=== PATIENT | male | born 1960 | race Caucasian/White ===

== ENCOUNTER → 2018-04-08 09:10 | Outpatient (CLI) | payer OTHER, SELFPAY ==
[2018-04-08 09:43] LABS: Hematocrit 48.4 % (40-54); Hemoglobin 16.7 g/dl (13.0-16.5); Mean Corp Hgb Conc 34.5 g/gl (32-36); Mean Corpuscular Hgb 33.9 pg (27.0-32.0); Mean Corpuscular Volume 98.4 fL (80-94); Mean Platelet Vol. 10.4 fl (6.2-12.0); Platelet Count 129 K/mm3 (150-450); RBC Distribution Width CV 12.5 % (11.6-14.6); Red Blood Count 4.92 M/mm3 (4.6-6.2); Scan Indicated on CBC? Y/N NO; White Blood Count 4.4 K/mm3 (4.4-11.0)
[2018-04-08 10:00] LABS: Hemoglobin A1c 4.8 % (4.2-6.3)
[2018-04-08 10:13] LABS: ALB/GLOB Ratio 1.1 RATIO (0.9-2.4); AST(SGOT) 38 U/L (15-37); Alanine Aminotransfer ALT/SGPT 76 U/L (16-61); Albumin, Serum 3.9 g/dL (3.2-5.0); Alkaline Phosphatase 67 U/L (45-117); Anion Gap 11 (5-15); BUN 14 mg/dL (7-18); Calcium,Total 8.9 mg/dL (8.5-10.1); Chloride 107 mmol/L (98-107); Cholesterol 179 mg/dL (200); Creatinine, Serum 1.17 mg/dL (0.70-1.30); EST Glomerular Filtration Rate 68 mL/min (>60); Est Glom Filt Rate - Afr Amer 83 mL/min (>60); Globulin 3.5 g/dL (2.2-4.2); Glucose 97 mg/dL (74-106); High Density Lipoprotein 47 mg/dL; PSA,Total - Annual Screen 0.43 ng/mL (0.00-4.00); Potassium 4.9 mmol/L (3.5-5.1); Protein, Total 7.4 g/dL (6.4-8.2); Sodium Level 144 mmol/L (136-145); Triglycerides 92 mg/dL; Very Low Density Lipoprotein 18 mg/dL (5-40)
== END ==
PROVIDERS: Visit Provider Student in an Organized Health Care Education/Training Program
DX: Z00.00 Encounter for general adult medical examination without abnormal findings (principal); Z12.5 Encounter for screening for malignant neoplasm of prostate
CPT/HCPCS: 36415; 80053; 80061; 83036; 84153; 85027; G0103

== ENCOUNTER → 2019-03-20 09:00 | Outpatient (CLI) | payer OTHER, SELFPAY ==
--- NOTE | 2019-03-20 09:00 | LES_PTH ---
PATIENT: NELSON MASSEY LOC: [facility] U#:[id number] AGE/SX: 65/M ROOM: RE03/20/[address]: Dr. Johann Franco MD : 1960 BED: DIS: SPEC #: [id number] RECD: 03/20/19 15:22 STATUS: MAG GIANNA #: [id number] ERWIN: 03/20/19 09:[address]: Johann Franco DEPT: SURGICAL PATHOLOGY RECD BY: Kali Waller Tissues: A - Skin of forearm, NOS B - Skin of forearm, NOS C - Skin of ankle and foot Procedures: Surgery Specimen Level IV HEADER OPERATION: Shave biopsy of left forearm skin lesion x2 and one left ankle skin lesion PRE-OP DIAGNOSIS: Skin lesions x2 left arm and one left ankle TISSUE SUBMITTED: A. Left forearm medial, B. Left forearm lateral, C. Left ankle skin lesion MICROSCOPIC DIAGNOSIS A. Left forearm medial, shave biopsy: Seborrheic keratosis with focal actinic changes. Negative for malignancy. B. Left forearm lateral, shave biopsy: Inflamed actinic keratosis with verrucous features and focal features of seborrheic keratosis. Negative for malignancy. C. Left ankle lesion, shave biopsy: Actinic keratosis with verrucous features. Negative for malignancy. SJ:rg 03/24/19 COMMENT Clinical correlation and appropriate follow up are necessary. Case has been reviewed in consultation with Dr. Lorenz who concurs with the above diagnosis. IDC:AM MICROSCOPIC DESCRIPTION Slides are reviewed. GROSS DESCRIPTION A - Received in fixative is one container labeled with the patient's name and designated left forearm medial. The specimen consists of a piece of magallanes-brown skin measuring 0.5 x 0.4 x 0.1 cm. The specimen is inked and submitted entirely in one cassette. It will be bisected at the time of embedding. B - Received in fixative is one container labeled with the patient's name and designated left forearm lateral. The specimen consists of a piece of magallanes-white skin measuring 0.6 x 0.6 x 0.2 cm. The specimen is inked and submitted entirely in one cassette. It will be bisected at the time of embedding. C - Received in fixative is one container labeled with the patient's name and designated left ankle. The specimen consists of a piece of magallanes-white skin measuring 0.6 x 0.6 x 0.1 cm. The specimen is inked and submitted entirely in one cassette. It will be sectioned at the time of embedding. / RINA:therese 03/21/19 TC:3 CPT: 19977 x3
== END ==
PROVIDERS: Referring Provider Surgery; Visit Provider Surgery
DX: L98.9 Disorder of the skin and subcutaneous tissue, unspecified (principal)
CPT/HCPCS: 88305

== ENCOUNTER 2019-04-01 08:25 | Day surgery (SDC) | payer OTHER, SELFPAY ==
[2019-04-01] VITALS (8 sets, daily range): BP systolic 102–134; BP diastolic 69–82; PULSE 62–73; RESP 16; TEMP 36.4–37.2; O2SAT 95–100; BMI 34.3
--- NOTE | 2019-04-01 | COLBX_PTH ---
PATIENT: NELSON MASSEY LOC: EN U#:[id number] AGE/SX: 59/M ROOM: RE04/01/[address]: Dr. Johann Franco MD : 1960 BED: DIS: 04/01/2019 SPEC #: [id number] RECD: 04/01/19 14:04 STATUS: MAG GIANNA #: [id number] ERWIN: 04/01/19 00:[address]: Johann Franco DEPT: SURGICAL PATHOLOGY RECD BY: Jamison Altman ENTERED: 04/01/19 14:05 SP TYPE: COLON BX OTHR DR: Dr. Lavelle Sesay DO Tissues: A - Cecum, NOS B - Ileum, NOS C - COLON BIOPSY D - Transverse colon E - SPLENIC FLEXURE F - Descending colon Procedures: Surgery Specimen Level IV HEADER OPERATION: Colonoscopy (MOD) PRE-OP DIAGNOSIS: History of colon polyps TISSUE SUBMITTED: A - Flat polypoid cecal biopsy, B - Ileocecal valve polyp biopsy, C - Hepatic flexure polyp biopsy, D - Mid transverse polyp biopsy, E - Splenic flexure polyp biopsy, F - Descending colon polyp biopsy MICROSCOPIC DIAGNOSIS A. Cecal polyp, biopsy: Fragments of hyperplastic polyp. B. Ileocecal valve polyp, biopsy: Fragments of tubular adenoma. C. Colonic polyp at hepatic flexure, biopsy: Fragments of tubular adenoma. D. Mid transverse colon polyp, biopsy. Tubular adenoma. E. Colonic polyp at splenic flexure, biopsy: Colonic mucosa with focal adenomatous change. F. Descending colon polyp, biopsy: Fragments of tubular adenoma. AM:therese 04/02/19 MICROSCOPIC DESCRIPTION Slides are reviewed. GROSS DESCRIPTION A - Received in fixative is one container labeled with the patient's name and designated flat polypoid cecal biopsy. The specimen consists of multiple irregular fragments of light magallanes soft tissue that in aggregate measure 1 x 0.3 x 0.1 cm. The specimen is totally submitted in one cassette. B - Received in fixative is one container labeled with the patient's name and designated ileocecal valve polyp biopsy. The specimen consists of multiple irregular fragments of light magallanes soft tissue that in aggregate measure 2 x 0.6 x 0.1 cm. The specimen is totally submitted in one cassette. C - Received in fixative is one container labeled with the patient's name and designated hepatic flexure polyp biopsy. The specimen consists of two irregular fragments of light magallanes soft tissue that in aggregate measure 0.6 x 0.3 x 0.1 cm. The specimen is totally submitted in one cassette. D - Received in fixative is one container labeled with the patient's name and designated mid transverse polyp biopsy. The specimen consists of multiple irregular fragments of light magallanes soft tissue that in aggregate measure 0.5 x 0.5 x 0.1 cm. The specimen is totally submitted in one cassette. E - Received in fixative is one container labeled with the patient's name and designated splenic flexure polyp. The specimen consists of two irregular fragments of light magallanes soft tissue that in aggregate measure 0.8 x 0.3 x 0.1 cm. The specimen is totally submitted in one cassette. F - Received in fixative is one container labeled with the patient's name and designated descending colon polyp. The specimen consists of multiple irregular fragments of light magallanes soft tissue that in aggregate measure 1.2 x 0.4 x 0.1 cm. The specimen is totally submitted in one cassette. / SJ:rg 04/01/19 TC:5 CPT: 79744 x6
--- NOTE | 2019-04-01 05:47 | PCM.HP.STD ---
Problem List (1) Personal history of colonic polyps Status: Acute History of Present Illness Date of Admission: 04/01/19 The patient is a 59 year old M who presents for surveillance colonoscopy. He has a personal history of multiple colon polyps identified on his previous colonoscopy. Multiple adenomas. He has had no personal or family history of colon cancer. He currently remains symptom-free. He denies bright red blood per rectum or melena. No abdominal pain. He has had no change in body habitus. Past Medical History Medical History: Medical History (Last Updated 03/20/19 @ 08:06 by Salud Jimenez) Skin lesions (Acute) L98.9 Back problem M53.9 Constipation K59.00 Allergies No Known Allergies Allergy (Unverified 03/28/19 11:41) Home Medications: Ambulatory Orders Medication Instructions Recorded peg 3350-electrolytes 236 4,000 ml PO ONCE #4000 ml 03/10/19 gram-22.74 gram-6.74 gram-5.86 gram solution Aspirin [Mitch Advanced] 500 mg PO PRN PRN 03/28/19 Surgical History: Surgical History (Last Updated 03/20/19 @ 08:04 by Salud Jimenez) H/O colonoscopy Z98.890 Smoking Status: Former smoker Review of Systems Constitutional: Denies: Anorexia HEENT: Denies: Difficulty Swallowing Cardiovascular: Denies: Chest Pain Respiratory: Denies: Cough Gastrointestinal: Denies: Abdominal Pain, Melena Endocrine: Denies: Change in Body Habitus VTE Information - Inpt Only VTE Present on Admission: No - Physical Exam General: Alert, Oriented x3, Cooperative, No apparent distress Oral: Moist Mucosa Neck: Supple Lungs: Clear to auscultation, Normal air movement Cardiovascular: Regular rate, Regular Rhythm Abdomen: Bowel Sounds Present, Soft, Non Tender Extremities: No clubbing Psych/Mental Status: Normal Affect Assessment/Plan All Active Problems (Last Updated 03/20/19 @ 08:06 by Salud Jmienez) Personal history of colonic polyps (Acute) Skin lesions (Acute) I recommended the patient a surveillance colonoscopy. He is aware of the technique, benefits, risks, alternatives. He has had an opportunity to ask and have questions answered. We will proceed as noted. He presents via our open access program today. Previous colonoscopy was 2 years prior. Johann Franco M.D., F.A.C.S.
--- NOTE | 2019-04-01 10:17 | OP.ENDO_ITS ---
Patient Name: Brenden Owens Procedure Date: 04/01/2019 9:22 AM Date of : 1960 Age: 59 Procedure: Colonoscopy Indications: High risk colon cancer surveillance: Personal history of colonic polyps Providers: Johann Franco MD Referring MD: Johann Franco MD Medicines: Midazolam 6.5 mg IV, Meperidine 150 mg IV Patient Profile: Last Colonoscopy: 2016. Complications: No immediate complications. Procedure: Pre-Anesthesia Assessment: - Prior to the procedure, a History and Physical was performed, and patient medications and allergies were reviewed. The patient's tolerance of previous anesthesia was also reviewed. The risks and benefits of the procedure and the sedation options and risks were discussed with the patient. All questions were answered, and informed consent was obtained. Prior Anticoagulants: The patient has taken no previous anticoagulant or antiplatelet agents. ASA Grade Assessment: II - A patient with mild systemic disease. After reviewing the risks and benefits, the patient was deemed in satisfactory condition to undergo the procedure. After I obtained informed consent, the scope was passed under direct vision. Throughout the procedure, the patient's blood pressure, pulse, and oxygen saturations were monitored continuously. The pediatric colonoscope was introduced through the anus and advanced to the cecum, identified by appendiceal orifice and ileocecal valve. The colonoscopy was performed without difficulty. The patient tolerated the procedure well. The quality of the bowel preparation was fair. The ileocecal valve was photographed. Moderate Sedation: Moderate (conscious) sedation was personally administered by the endoscopist. The following parameters were monitored: oxygen saturation, heart rate, blood pressure, and response to care. Total physician intraservice time was 20 minutes. Scope In: 9:35:49 AM Scope Withdrawal Time 0 hours 26 minutes 38 seconds Scope Out: 10:07:41 AM Total Procedure Duration Time 0 hours 31 minutes 52 seconds Findings: Hemorrhoids were found on perianal exam. slightly enlarged. No mass Many diverticula were found in the sigmoid colon and descending colon. A 5 mm polyp was found in the cecum. The polyp was flat. The polyp was removed with a cold biopsy forceps. Resection and retrieval were complete. A 10 mm polyp was found in the ileocecal valve. The polyp was sessile. The polyp was removed with a cold snare. Resection and retrieval were complete. A 4 mm polyp was found in the hepatic flexure. The polyp was sessile. The polyp was removed with a cold biopsy forceps. Resection and retrieval were complete. A 4 mm polyp was found in the mid transverse colon. The polyp was sessile. The polyp was removed with a cold biopsy forceps. Resection and retrieval were complete. A 5 mm polyp was found in the splenic flexure. The polyp was sessile. The polyp was removed with a cold biopsy forceps. Resection and retrieval were complete. A 5 mm polyp was found in the mid descending colon. The polyp was sessile. The polyp was removed with a cold biopsy forceps. Resection and retrieval were complete. Impression: - Preparation of the colon was fair. - Hemorrhoids found on perianal exam. - Diverticulosis in the sigmoid colon and in the descending colon. - One 5 mm polyp in the cecum, removed with a cold biopsy forceps. Resected and retrieved. - One 10 mm polyp at the ileocecal valve, removed with a cold snare. Resected and retrieved. - One 4 mm polyp at the hepatic flexure, removed with a cold biopsy forceps. Resected and retrieved. - One 4 mm polyp in the mid transverse colon, removed with a cold biopsy forceps. Resected and retrieved. - One 5 mm polyp at the splenic flexure, removed with a cold biopsy forceps. Resected and retrieved. - One 5 mm polyp in the mid descending colon, removed with a cold biopsy forceps. Resected and retrieved. Recommendation: - Discharge patient to home. - Resume previous diet. - Continue present medications. - Repeat colonoscopy in 2 years for surveillance based on pathology results. - Telephone my office for pathology results in 1 week. Procedure Code(s): --- Professional --- 28704, Colonoscopy, flexible; with removal of tumor(s), polyp(s), or other lesion(s) by snare technique 46393, 59, Colonoscopy, flexible; with biopsy, single or multiple 56687, 59, Moderate sedation services provided by the same physician or other qualified health memory care director performing the diagnostic or therapeutic service that the sedation supports, requiring the presence of an independent trained observer to assist in the monitoring of the patient's level of consciousness and physiological status; initial 15 minutes of intraservice time, patient age 5 years or older Diagnosis Code(s): --- Professional --- Z86.010, Personal history of colonic polyps K64.9, Unspecified hemorrhoids D12.0, Benign neoplasm of cecum D12.3, Benign neoplasm of transverse colon (hepatic flexure or splenic flexure) D12.4, Benign neoplasm of descending colon K57.30, Diverticulosis of large intestine without perforation or abscess without bleeding CPT copyright 2017 [employer]. All rights reserved. The codes documented in this report are preliminary and upon director of architecture review may be revised to meet current compliance requirements. Johann Franco MD 04/01/2019 10:16:30 AM This report has been signed electronically. Number of Addenda: 0 Note Initiated On: 04/01/2019 9:22 AM
== END 2019-04-01 10:42 | disposition home or self-care (01) ==
LOC: EN 08:27 → AC 08:28
PROVIDERS: Family Provider Student in an Organized Health Care Education/Training Program; PCP Student in an Organized Health Care Education/Training Program; Referring Provider Surgery; Visit Provider Surgery
PROC: 0DJD8ZZ Inspection of Lower Intestinal Tract, Via Natural or Artificial Opening Endoscopic (ICD-10-PCS; CPT 45378; principal; 2019-04-01 09:25)
DX: Z12.11 Encounter for screening for malignant neoplasm of colon (principal); D12.4 Benign neoplasm of descending colon; D12.3 Benign neoplasm of transverse colon; D12.0 Benign neoplasm of cecum; K57.30 Diverticulosis of large intestine without perforation or abscess without bleeding; K64.9 Unspecified hemorrhoids; K59.00 Constipation, unspecified; Z79.82 Long term (current) use of aspirin; Z87.891 Personal history of nicotine dependence; Z86.010 Personal history of colon polyps
CPT/HCPCS: 45380; 45385; 88305; 99152; 99153; J7120

== ENCOUNTER → 2020-01-26 14:06 | Outpatient (CLI) | payer OTHER, SELFPAY ==
[2019-04-01 08:45] VITALS: BMI 34.3
[2020-01-26 15:03] LABS: Absolute Lymphocyte Count 1.53 X10^3/uL (0.83-4.51); Absolute Neutrophil Count 4.1 X10^3/uL (2.0-7.7); Basophil# 0.04 X10^3/uL; Basophil% 0.6 % (0-1); Eosinophil# 0.11 X10^3/uL; Eosinophils% 1.7 % (0-5); Hematocrit 45.7 % (40-54); Hemoglobin 15.8 g/dL (13.0-16.5); Lymphocyte # 1.53 X10^3/ul (4.0); Lymphocyte % 24.2 % (19-41); Mean Corp Hgb Conc 34.6 g/dL (32-36); Mean Corpuscular Volume 92.7 fL (80-94); Mean Platelet Vol. 11.4 fl (6.2-12.0); Monocyte# 0.53 X10^3/uL; Monocyte% 8.4 % (0-10); NRBC Flagged by Analyzer 0 % (0-5); Neutrophil % 64.9 % (47-70); Platelet Count 166 K/mm3 (150-450); RBC Distribution Width CV 12.3 % (11.6-14.6); RBC Distribution Width SD 41.6 fl (35.1-43.9); Red Blood Count 4.93 M/mm3 (4.6-6.2); White Blood Count 6.3 K/mm3 (4.4-11.0)
[2020-01-26 15:18] LABS: Hemoglobin A1c 4.9 % (3.8-5.6)
[2020-01-26 15:19] LABS: ALB/GLOB Ratio 1.2 RATIO (0.9-2.4); AST(SGOT) 18 U/L (15-37); Alanine Aminotransfer ALT/SGPT 33 U/L (16-61); Albumin, Serum 3.7 g/dL (3.2-5.0); Alkaline Phosphatase 73 U/L (45-117); Anion Gap 7 (5-15); BUN 14 mg/dL (7-18); BUN/Creat Ratio 13.2 RATIO (10-20); Calcium,Total 8.8 mg/dL (8.5-10.1); Chloride 108 mmol/L (98-107); Cholesterol 180 mg/dL (200); Creatinine, Serum 1.06 mg/dL (0.70-1.30); EST Glomerular Filtration Rate 76 mL/min (>60); Est Glom Filt Rate - Afr Amer 92 mL/min (>60); Globulin 3.2 g/dL (2.2-4.2); Glucose 91 mg/dL (74-106); High Density Lipoprotein 51 mg/dL; PSA,Total - Annual Screen 0.31 ng/mL (0.00-4.00); Potassium 4.3 mmol/L (3.5-5.1); Protein, Total 6.9 g/dL (6.4-8.2); Sodium Level 140 mmol/L (136-145); Triglycerides 55 mg/dL; Very Low Density Lipoprotein 11 mg/dL (5-40)
== END ==
PROVIDERS: PCP Student in an Organized Health Care Education/Training Program; Referring Provider Student in an Organized Health Care Education/Training Program; Visit Provider Student in an Organized Health Care Education/Training Program
DX: Z00.00 Encounter for general adult medical examination without abnormal findings (principal)
CPT/HCPCS: 36415; 80053; 80061; 83036; 84153; 85025; G0103

== ENCOUNTER 2020-02-04 05:29 | Day surgery (SDC) | payer OTHER, SELFPAY ==
[2019-04-01 08:45] VITALS: BMI 34.3
--- NOTE | 2020-01-30 12:00 | RAD_ITS ---
STUDY: X-RAY CHEST REASON FOR EXAM: Male, 60 years old. PRE OP NO CHEST COMPLAINTS TECHNIQUE: PA and lateral views of the chest. COMPARISON: None. FINDINGS: The lungs are clear and expanded. Scattered calcified granulomas. There is no demonstrated pleural abnormality. Normal size heart. Calcified right hilar lymph nodes. Normal visualized pulmonary arteries. Normal visualized aortic arch and descending thoracic aorta. There are diffuse degenerative changes of the visualized thoracic spine. Normal visualized ribs, clavicles, and shoulders. There is no demonstrated abnormality of the visualized soft tissue structures of the upper abdomen. RAD/Chest PA and Lateral IMPRESSION: No acute abnormality is seen. Electronically Signed: Salvador Faye, at 12:11 EDT , Service support ,
[2020-02-04] VITALS (8 sets, daily range): BP systolic 111–169; BP diastolic 70–97; PULSE 66–87; RESP 16–18; TEMP 36.3–37.2; O2SAT 94–100; BMI 35.0
[2020-02-04] MEDS: Celecoxib 200 MG Capsule 400 MG PO (06:01)
[2020-02-04] MEDS: Scopolamine 1mg/72hr Patch 1 PATCH TRANSDERM. (06:02)
[2020-02-04] MEDS: Acetaminophen 500 MG Tablet 1000 MG PO ×2 (06:02→13:49)
[2020-02-04] MEDS: Gabapentin 600 MG Tablet PO (06:02)
[2020-02-04 06:41] LABS: Bedside Glucose 94 mg/dL (70-110)
--- NOTE | 2020-02-04 07:20 | PCM.HP.BLA ---
History and Physical Date of Admission: 02/04/20 Updated history and physical for history and physical dictated by Brittany Graham PA-C January 30, 2020 I have re-examined the patient. There are no clinical changes since date of exam
[2020-02-04] MEDS: Lactated Ringers 1,000 ML 500 ML IV (07:30)
--- NOTE | 2020-02-04 07:30 | RAD_ITS ---
STUDY: X-RAY - PELVIS AND RIGHT HIP REASON FOR EXAM: Male, 60 years old. Right Total Hip Anterior. TECHNIQUE: 1 views of the pelvis and hip. COMPARISON: None. FINDINGS: Intraoperative imaging provided for total right hip replacement. RAD/Hip 1 view with Pelvis IMPRESSION: Intraoperative imaging provided for total right hip replacement. Electronically Signed: Salvador Faye, at 9:45 EDT , Service support ,
[2020-02-04] MEDS: Lactated Ringers 1,000 ML 100 ML IV (08:30)
--- NOTE | 2020-02-04 09:02 | PCM.OPRPT ---
Report of Operation Date of Procedure: 02/04/20 Pre-Operative Diagnosis: Right hip primary osteoarthritis Post-Operative Diagnosis: Right hip primary osteoarthritis Surgery/Procedure Performed:: Right direct anterior minimally invasive total hip replacement Description of Surgical Findings:: Stable hip with equal leg lengths staff home therapy rn: Jenny Crisostomo Type of Anesthesia:: General Anesthesiologist: Tramaine Boothe Special Medications: 2 g Ancef, 1 g TXA at incision, 1 g TXA closure, 10 mg Decadron, joint cocktail (5 mg Duramorph, 30 mL of 0.5% Ropivicaine, 1000 units of epinephrine, 30 mg of Toradol) Specimen's removed: Bony cuts Estimated Blood Loss (mL): 200 mL Fluids Replaced: 1000 L crystalloid Description of Procedure: Components used: 1. Accolade 2 Golden Eagle femoral stem size 6 127? 2. Golden Eagle trident 2 acetabular shell size 58 mm 3. Solomon X3 polyethylene F 4. Solomon Biolox delta 36mm, +5mm femoral head Brief history operative indications: 60 yo m who failed conservative measures for their hip osteoarthritis. X-rays were consistent with osteoarthritis including joint space narrowing, osteophyte formation and subchondral cysts. Total hip replacement was discussed with the patient with risks and benefits including but not limited to blood loss, DVTs, PEs, neurovascular damage, dislocation, general risks of anesthesia including loss of life. Patient demonstrated an understanding medical clearance is obtained the patient was consented for surgery. Procedure: On the date of procedure the patient's R hip was marked in the preoperative area. Patient was then taken back to the operating room where anesthesia assumed control of the C-spine and airway and administered anesthetic. Patient was transferred to the operating table and placed in the supine position. The hips were placed at the break of the bed and a sacral bump was placed. The R lower extremity was then prepped out in a sterile fashion using chlorhexidine while the surgeon scrubbed. The PA was vital in the positioning of the patient. Upon reentering the room the R lower extremity was draped in the standard orthopedic fashion and the incision was marked. A timeout was called and everyone agreed upon the side, the site, the procedure be performed, antibody given, and patient's identity. At this time incision was made through skin, subcutaneous tissue, and fat down to fascia. The fascia was then incised and the TFL was retracted laterally. A retractor was placed on the lateral border of the femoral neck. Attention was directed to the inferior portion of the approach and all crossing vessels were identified and appropriately coagulated. A retractor was then placed on the medial portion of the femoral neck. The anterior capsule was then cleared of all soft tissue and then H shaped capsulotomy was made. The retractors were then placed inside the capsule. The femoral neck was identified and a cleanup cut was made. At this time a power corkscrew was used to remove the femoral head. Attention was then turned toward the acetabulum where the soft tissues were appropriately retracted and the acetabulum was sequentially reamed to 58 mm. Acetabular cysts were debrided and reamings were used to pack with bone graft. A 58 mm cup was then selected and impacted into place. Acetabular liner was impacted into place and locking mechanism was verified. The position of the acetabular cup was then verified under live fluoroscopy. Attention was then turned to the femur. Soft tissue releases on the medial and lateral femoral neck were appropriately done, the leg was externally rotated and lateralized. A Alcaraz retractor was placed medially and proximally to the greater trochanter this allowed appropriate visualization and exposure of the femoral canal. Rongeour was then used to remove excess lateral bone. A canal finder and entry broach were used to open the proximal canal. Once we verified we were down the femoral canal we subsequently broached up to a size 6 femur. The appropriate neck was placed in the previously selected head was trialed with a +5 mm neck. Traction was pulled and the hip was reduced with internal rotation. Once it was appropriately reduced and stability was checked. There was minimal shuck, equal leg lengths and appropriate stability with hyperextension and external rotation as well as with 90? flexion and internal rotation. Fluoroscopy was then also used to verify the position of the components and leg lengths using the contralateral side for comparison. The trial components were then dislocated the proximal femur was again exposed and the components were removed from the wound. The final components were verified and opened. The wound was copiously irrigated out with normal saline. The acetabulum was checked for any residual debris. The final components were placed and impacted. Traction and internal rotation were again used to reduce the hip. After adequate reduction the hip remained stable with appropriate leg lengths. The final components were once again checked with live fluoroscopy and were found to be satisfactory. The wound was then copiously irrigated with normal saline once more, and hemostasis was obtained. Closure was then done using #1 Vicryl runner to close the fascia. A 2-0 vicryl interuppted sutures were used to close the subcutaneous skin. A 3-0 Monocryl and Steri-Strips were used for final skin closure. A Silverlon dressing was placed. Patient was awakened by anesthesia and transferred to the [facility]. Patient was then transferred to the PACU for recovery. Postoperative plan: Patient will get 24 hours postop antibiotics. Patient will get in-house physical therapy and will be weight-bear as tolerated. Patient will follow up in office in 2 weeks for a wound check and x-rays. - Complications No intraoperative complications - Admit VTE Documentation VTE Present on Admission: No VTE Mechan Device Prophylaxis: SCD's, Thigh High LISA Hose VTE Pharm Prophylaxis ordered?: Yes
--- NOTE | 2020-02-04 10:05 | RAD_ITS ---
STUDY: X-RAY - PELVIS AND RIGHT HIP REASON FOR EXAM: Male, 60 years old. POST OP RIGHT HIP. TECHNIQUE: 2 views of the pelvis and hip. COMPARISON: None. FINDINGS: The patient is status post right total hip replacement. There is good alignment. Postoperative soft tissue changes. Marked degree of the osteoarthritis of the left hip joint. RAD/Hip Min 2 Views (Portable) IMPRESSION: Status post right total hip replacement. There is good alignment. Marked degree of osteoarthritis of the left hip joint. Electronically Signed: Salvador Faye, at 10:44 EDT , Service support ,
[2020-02-04] MEDS: oxyCODONE 5 MG Tablet PO (12:06)
[2020-02-04] MEDS: Cefazolin 1 GM/50 ML BAG IV (13:23)
== END 2020-02-04 14:09 | disposition home or self-care (01) ==
LOC: SDC 05:32 → AC 05:33
PROVIDERS: Anesthesiology; PCP Student in an Organized Health Care Education/Training Program; Referring Provider Specialist; Visit Provider Specialist
PROC: (CPT 27284; principal; 2020-02-04 07:05)
DX: M16.11 Unilateral primary osteoarthritis, right hip (principal); L40.9 Psoriasis, unspecified; E66.3 Overweight; Z68.35 Body mass index [BMI] 35.0-35.9, adult; Z11.59 Encounter for screening for other viral diseases; Z87.891 Personal history of nicotine dependence
CPT/HCPCS: 01214; 27130; 71046; 73501; 73502; 76000; 82962; 87081; 87635; 97162; 97166; C1776; G2023; J7120; J2405; U0003

== ENCOUNTER 2022-11-28 08:07 | Day surgery (SDC) | payer OTHER, SELFPAY ==
--- NOTE | 2022-11-28 08:23 | PCM.HP.STD ---
HPI - General General Date of Service: 11/28/22 Chief Complaint: Screening for intestinal cancer HPI Narrative NELSON MASSEY, is a 62 M who presents for surveillance colonoscopy. I assisted him on April 01, 2019 with a colonoscopy and 6 polyps were identified and removed at that time. Fortunately he denies any abdominal pain. No bright red blood per rectum or melena. 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 [facility] Medical History (Updated 11/27/22 @ 10:27 by Anushka Sinha) Alcohol use Arthritis Back problem Constipation History of edema History of pain when walking Psoriasis Skin lesions Smoker Wears contact lenses Home Medications mpguyeg-iletpzezqkloq-akjnigfk 250 mg-250 mg-65 mg tablet (Excedrin Extra Strength) 1 tab PO Q6H PRN Migraine Headache 10/24/22 [History Last Taken Unknown] ibuprofen 800 mg tablet 800 mg PO Q8H PRN Pain 11/27/22 [History Last Taken Unknown] Allergy/AdvReac Type Severity Reaction Status Date / Time No Known Allergies Allergy Unverified 11/27/22 10:20 Family History (Updated 10/24/22 @ 09:26 by Serenity Caceres) Father Diabetes Colon polyps Surgical History (Updated 11/27/22 @ 10:27 by Anushka Sinha) H/O colonoscopy Hx of total hip arthroplasty Social History Smoking Status: Current every day smoker tobacco type: cigars alcohol intake: current alcohol intake frequency: a few times a month ROS Constitutional Constitutional: Reports systems reviewed and no addt'l complaints, except as documented Cardiovascular Cardiovascular: Denies chest pain Respiratory/Chest Respiratory/Chest: Denies shortness of breath at rest Gastrointestinal Gastrointestinal: Denies abdominal pain, change in bowel habits, hematochezia or melena Physical Exam Const alert, oriented x3 and no apparent distress General Appearance: cooperative and comfortable Eyes General Eye: normal appearance of both eyes Neck General: normal visual inspection Chest inspection of chest normal Resp Effort and Inspection: able to speak in complete sentences and symmetric chest movement Auscultation: clear to auscultation bilaterally Cardio regular rate and regular rhythm GI soft to palpation, non-tender and non-distended Extremity no calf tenderness Neuro oriented x3 Psych thought process normal Assessment & Plan Assessment/Plan (1) Personal history of colonic polyps: PLAN: 62-year-old gentleman presents via open access today for surveillance colonoscopy because of a personal history of colon polyps. He is aware of the technique, benefit, risk and alternatives. He has had an opportunity to ask and have questions answered. We will proceed as noted. Johann Franco M.D., F.A.C.S.
[2022-11-28 08:31] VITALS: BP 145/82; PULSE 64; RESP 18; TEMP 36.3; O2SAT 94; BMI 35.6
[2022-11-28] MEDS: Lactated Ringers 1,000 ML 15 ML IV (08:34)
--- NOTE | 2022-11-28 09:15 | COLBX_PTH ---
PATIENT: NELSON MASSEY LOC: EN U#:[id number] AGE/SX: 62/M ROOM: RE11/28/[address]: Dr. Johann Franco MD : 1960 BED: DIS: 11/28/2022 SPEC #: [id number] RECD: 11/28/22 11:58 STATUS: MAG GIANNA #: [id number] ERWIN: 11/28/22 09:[address]: Johann Franco DEPT: SURGICAL PATHOLOGY RECD BY: Mary Kee ENTERED: 11/28/22 12:53 SP TYPE: COLON BX OTHR DR: Dr. Lavelle Sesay DO Tissues: A - Cecum, NOS B - Ascending colon C - Ascending colon D - Descending colon Procedures: Surgery Specimen Level IV HEADER OPERATION: Colonoscopy ? open access (MAC), polypectomy, biopsy PRE-OP DIAGNOSIS: History of colonic polyps TISSUE SUBMITTED: A ? Polyp cecum, B ? Polyp proximal ascending colon, C ? Polypoid mid ascending colon, D ? Polyp descending colon MICROSCOPIC DIAGNOSIS A. Polyp cecum, polypectomy: Tubular adenoma. B. Polyp proximal ascending colon, biopsy: Tubular adenoma. Fragments of fecal material. C. Polypoid mid ascending colon, biopsy: Tubular adenoma. D. Polyp descending colon, biopsy: Fragments of tubular adenoma. SJ:therese 11/29/2022 MICROSCOPIC DESCRIPTION Slides are reviewed. GROSS DESCRIPTION A - Received in fixative is one container labeled with the patient's name and designated polyp cecum. The specimen consists of a pink polyp measuring 0.7 x 0.5 x 0.2 cm. The specimen is totally submitted in one cassette. B - Received in fixative is one container labeled with the patient's name and designated polyp proximal ascending colon. The specimen consists of multiple irregular fragments of light magallanes soft tissue mixed with fecal material that in aggregate measure 0.5 x 0.2 x 0.1 cm. The specimen is totally submitted in one cassette. C - Received in fixative is one container labeled with the patient's name and designated polypoid mid ascending colon. The specimen consists of two irregular fragments of light magallanes soft tissue that in aggregate measure 0.4 x 0.4 x 0.1 cm. The specimen is totally submitted in one cassette. D - Received in fixative is one container labeled with the patient's name and designated polyp descending colon. The specimen consists of two irregular fragments of light magallanes soft tissue that in aggregate measure 0.4 x 0.3 x 0.1 cm. The specimen is totally submitted in one cassette. / RINA:therese 11/28/2022 TC:1 CPT: 44591 x4
[2022-11-28 10:00] VITALS: BP 123/71; BP 145/82; PULSE 70; RESP 16; TEMP 36.2; O2SAT 96
--- NOTE | 2022-11-28 10:01 | OP.CCLET_ITS ---
11/28/2022 Lavelle Sesay [address] [place] [address] Re : Colonoscopy procedure for Brenden Owens Dear Dr. Sesay This procedure was performed on Monday, November 28, 2022. My impressions and recommendations are as follows: Impressions : - Preparation of the colon was fair. - Non-thrombosed internal hemorrhoids and internal hemorrhoids that prolapse with straining, but spontaneously regress to the resting position (Grade II) found on digital rectal exam. - One 6 mm polyp in the cecum, removed with a cold snare. Resected and retrieved. Clip was placed. - One 5 mm polyp in the proximal ascending colon, removed with a hot snare. Resected and retrieved. - One 5 mm polypoid area in the mid ascending colon. Vague. Biopsied. - One 4 mm polyp in the distal descending colon, removed with a hot snare. Resected and retrieved. - Diverticulosis in the sigmoid colon. Recommendations : - Discharge patient to home. - Resume previous diet. - Continue present medications. - Repeat colonoscopy in 3 years for surveillance based on pathology results. - Telephone my office for pathology results in 1 week. My findings are described in the full procedure note, which is enclosed. If I can be of further assistance, please feel free to contact me at Doctor phone number(s): Work: . Sincerely, Johann Franco MD 11/28/2022 10:00:43 AM This report has been signed electronically.
--- NOTE | 2022-11-28 10:01 | OP.COLON_ITS ---
Patient Name: Brenden Owens Procedure Date: 11/28/2022 9:19 AM Date of : 1960 Age: 62 Procedure: Colonoscopy Indications: High risk colon cancer surveillance: Personal history of colonic polyps Providers: Johann Franco MD Medicines: See the Anesthesia note for documentation of the administered medications Patient Profile: Last Colonoscopy: March 2019. Complications: No immediate complications. Procedure: Pre-Anesthesia Assessment: - Prior to the procedure, a History and Physical was performed, and patient medications and allergies were reviewed. The patient's tolerance of previous anesthesia was also reviewed. The risks and benefits of the procedure and the sedation options and risks were discussed with the patient. All questions were answered, and informed consent was obtained. Prior Anticoagulants: The patient has taken no previous anticoagulant or antiplatelet agents. ASA Grade Assessment: II - A patient with mild systemic disease. After reviewing the risks and benefits, the patient was deemed in satisfactory condition to undergo the procedure. After I obtained informed consent, the scope was passed under direct vision. Throughout the procedure, the patient's blood pressure, pulse, and oxygen saturations were monitored continuously. The colonoscope was introduced through the anus and advanced to the cecum, identified by appendiceal orifice and ileocecal valve. The colonoscopy was performed without difficulty. The patient tolerated the procedure well. The quality of the bowel preparation was fair. The ileocecal valve was photographed. Scope In: 9:26:44 AM Scope Withdrawal Time 0 hours 23 minutes 12 seconds Scope Out: 9:52:29 AM Total Procedure Duration Time 0 hours 25 minutes 45 seconds Findings: The digital rectal exam findings include non-thrombosed internal hemorrhoids and internal hemorrhoids that prolapse with straining, but spontaneously regress to the resting position (Grade II). Pertinent negatives include normal prostate (size, shape, and consistency). A 6 mm polyp was found in the cecum. The polyp was sessile. The polyp was removed with a cold snare. Resection and retrieval were complete. To prevent bleeding post-intervention, one hemostatic clip was successfully placed. There was no bleeding at the end of the procedure. A 5 mm polyp was found in the proximal ascending colon. The polyp was sessile. The polyp was removed with a hot snare. Resection and retrieval were complete. A 5 mm polypoid area was found in the mid ascending colon. This was sessile. This was biopsied with a cold forceps for histology. A 4 mm polyp was found in the distal descending colon. The polyp was sessile. The polyp was removed with a hot snare. Resection and retrieval were complete. Scattered diverticula were found in the sigmoid colon. Impression: - Preparation of the colon was fair. - Non-thrombosed internal hemorrhoids and internal hemorrhoids that prolapse with straining, but spontaneously regress to the resting position (Grade II) found on digital rectal exam. - One 6 mm polyp in the cecum, removed with a cold snare. Resected and retrieved. Clip was placed. - One 5 mm polyp in the proximal ascending colon, removed with a hot snare. Resected and retrieved. - One 5 mm polypoid area in the mid ascending colon. Vague. Biopsied. - One 4 mm polyp in the distal descending colon, removed with a hot snare. Resected and retrieved. - Diverticulosis in the sigmoid colon. Recommendation: - Discharge patient to home. - Resume previous diet. - Continue present medications. - Repeat colonoscopy in 3 years for surveillance based on pathology results. - Telephone my office for pathology results in 1 week. Procedure Code(s): --- Professional --- 76373, Colonoscopy, flexible; with removal of tumor(s), polyp(s), or other lesion(s) by snare technique 65966, 59, Colonoscopy, flexible; with biopsy, single or multiple Diagnosis Code(s): --- Professional --- Z86.010, Personal history of colonic polyps K64.1, Second degree hemorrhoids D12.0, Benign neoplasm of cecum D12.2, Benign neoplasm of ascending colon D12.4, Benign neoplasm of descending colon K57.30, Diverticulosis of large intestine without perforation or abscess without bleeding CPT copyright 2017 [employer]. All rights reserved. The codes documented in this report are preliminary and upon lacquer polisher review may be revised to meet current compliance requirements. Johann Franco MD 11/28/2022 10:00:43 AM This report has been signed electronically. Number of Addenda: 0 Note Initiated On: 11/28/2022 9:19 AM
[2022-11-28 10:05] VITALS: BP 134/79; BP 145/82; PULSE 65; RESP 16; O2SAT 97
[2022-11-28 10:10] VITALS: BP 136/78; BP 145/82; PULSE 64; RESP 16; O2SAT 98
[2022-11-28 10:15] VITALS: BP 135/82; BP 145/82; PULSE 62; RESP 16; TEMP 36.8; O2SAT 100
[2022-11-28 10:42] VITALS: BP 145/82
== END 2022-11-28 10:46 | disposition home or self-care (01) ==
LOC: EN 08:08 → AC 08:10
PROVIDERS: PCP Student in an Organized Health Care Education/Training Program; Referring Provider Student in an Organized Health Care Education/Training Program; Visit Provider Surgery
PROC: 0DJD8ZZ Inspection of Lower Intestinal Tract, Via Natural or Artificial Opening Endoscopic (ICD-10-PCS; CPT 45378; principal; 2022-11-28 09:10)
DX: Z12.11 Encounter for screening for malignant neoplasm of colon (principal); K64.1 Second degree hemorrhoids; D12.0 Benign neoplasm of cecum; D12.2 Benign neoplasm of ascending colon; D12.4 Benign neoplasm of descending colon; K57.30 Diverticulosis of large intestine without perforation or abscess without bleeding; F10.90 Alcohol use, unspecified, uncomplicated; F17.290 Nicotine dependence, other tobacco product, uncomplicated; Z86.010 Personal history of colon polyps
CPT/HCPCS: 45380; 45385; 88305; J7120; J2405

== ENCOUNTER → 2023-11-19 | Outpatient (CLI) | payer OTHER, SELFPAY ==
--- NOTE | 2023-11-19 14:00 | LES_PTH ---
PATIENT: NELSON MASSEY LOC: [facility] U#:[id number] AGE/SX: 63/M ROOM: RE11/19/[address]: Dr. Johann Franco MD : 1960 BED: DIS: 11/19/2023 SPEC #: [id number] RECD: 11/19/23 15:28 STATUS: MAG GIANNA #: [id number] ERWIN: 11/19/23 14:[address]: Johann Franco DEPT: SURGICAL PATHOLOGY RECD BY: Mary Kee ENTERED: 11/20/23 08:54 SP TYPE: Lesion OTHR DR: Dr. Lavelle Sesay DO Tissues: A - Skin of neck, NOS B - Skin of leg, NOS Procedures: Surgery Specimen Level IV HEADER OPERATION: Shave biopsy left thigh and excision right neck skin lesion PRE-OP DIAGNOSIS: Left thigh skin lesion/ left neck skin lesion TISSUE SUBMITTED: A- Left neck, B- left thigh MICROSCOPIC DIAGNOSIS A. Skin lesion of left neck, excision biopsy; Seborrheic keratosis mildly inflamed. Solar elastosis. No evidence of malignancy. B. Skin lesion of left thigh, shave biopsy; Superficial fragments of verrucoid keratosis. / 11/21/2023 MICROSCOPIC DESCRIPTION Slides are reviewed. GROSS DESCRIPTION A. Received in fixative is one container labeled with the patient's name and designated Left neck skin lesion. The specimen consists of magallanes-white skin ellipse measuring 1.0 x 0.4cm and up to 0.3cm in thickness. There is a brown lesion on the surface measuring 0.5 x 0.3cm. The specimen is inked, serially sectioned and submitted entirely in one cassette. B. Received in fixative is one container labeled with the patient's name and designated Left thigh lesion. The specimen consists of three pieces of magallanes-brown skin measuring 0.8 x0.5 x0.1cm. 0.5 x 0.3 x 0.1cm and 0.5 x 0.2 x 0.1cm. Largest piece is serially sectioned. The specimen is inked, serially sectioned and submitted entirely in one cassette. The entire specimen is submitted in one cassette. / 11/20/23 TC:5 CPT: 89169b9
== END | disposition home or self-care (01) ==
LOC: LABSPEC 15:39
PROVIDERS: PCP Student in an Organized Health Care Education/Training Program; Referring Provider Surgery; Visit Provider Surgery
DX: L82.0 Inflamed seborrheic keratosis (principal)
CPT/HCPCS: 88305

== ENCOUNTER → 2024-05-02 | Outpatient (CLI) | payer OTHER, SELFPAY ==
--- NOTE | 2024-05-02 | LES_PTH ---
PATIENT: NELSON MASSEY LOC: [facility] U#:[id number] AGE/SX: 64/M ROOM: RE05/02/[address]: Dr. Noe Encinas MD : 1960 BED: DIS: 05/02/2024 SPEC #: [id number] RECD: 05/02/24 11:04 STATUS: MAG GIANNA #: [id number] ERWIN: 05/02/24 00:[address]: Noe Encinas DEPT: SURGICAL PATHOLOGY RECD BY: Jamison Altman ENTERED: 05/02/24 11:05 SP TYPE: Lesion OTHR DR: Dr. Lavelle Sesay, DO Tissues: Skin of eyelid, NOS Procedures: Surgery Specimen Level IV HEADER OPERATION: Right lower eyelid lesion PRE-OP DIAGNOSIS: Lesion TISSUE SUBMITTED: Right lower eyelid lesion MICROSCOPIC DIAGNOSIS Lower eyelid lesion, biopsy: Fragments of inflamed seborrheic keratosis and with features of actinic keratosis. Negative for malignancy. See comment. SJ/mr 05/05/2024 COMMENT Clinical correlation and appropriate follow up are necessary. MICROSCOPIC DESCRIPTION Slides are reviewed. GROSS DESCRIPTION Received in fixative is one container labeled with the patient's name and designated Right lower lid. The specimen consists of two fragments of magallanes-white and magallanes-brown skin each measuring 0.2 x 0.2 x 0.1 cm. The specimen is totally submitted in one cassette. RINA/ 05/05/2024 TC:5 CPT:44010
== END | disposition home or self-care (01) ==
PROVIDERS: PCP Student in an Organized Health Care Education/Training Program; Referring Provider Ophthalmology; Visit Provider Ophthalmology
DX: L57.0 Actinic keratosis (principal)
CPT/HCPCS: 88305

== ENCOUNTER → 2025-08-19 | Outpatient (CLI) | payer OTHER, SELFPAY ==
--- OUTSIDE RECORDS SUMMARY | 2025-08-19 07:36 | XMS RPT_ITS | CCD ---
Author Organization [facility] Care Team Providers Care Organic Search Lead Name Role Phone Aleksandra Wilson LPN Unavailable Unavailab Aleksandra Goetz LPN Unavailable Unavailab Dr. Lavelle Alegre Primary Care Provider Serenity Caceres Attending Provider Unavailable Dr. Lavelle Daly Referring Provider Dr. Johann Franco Attending Provider Dr. Johann Franco Other Provider Lavelle Daly DO Primary Care Provider Dr. Lavelle Daly Primary Care Provider Dr. Lavelle Daly Referring Provider Dr. Johann Franco Attending Provider Lavelle Daly DO Primary Care Provider Rolando NUCLEAR OPERATOR.Tracey TSAI Unavailable Lisa NUCLEAR OPERATOR.Renae TSAI Unavailable Johann Franco Attending Unavailable Johann Franco Referring Unavailable Lavelle Daly Primary Care Unavailable Noe Encinas Attending Unavailable Noe Encinas Referring Unavailable Lavelle Daly Primary Care Unavailable Lavelle Daly Referring Unavailable Johann Franco Attending Unavailable Lavelle Daly Primary Care Unavailable Lavelle Daly Primary Care Unavailable Tejas Astudillo Attending Unavailable Lavelle Daly Referring Unavailable Lavlele Daly Referring Unavailable Mohinder Lin Attending Unavailable Lavelle Daly Primary Care Unavailable PHYSICIAN, NONE Primary Care Physician Unavailab shay BUTLER MD, DR ARUN Thompson Attending Fred day PHYSICIAN, NONE Primary Care Unavailable PHYSICIAN, NONE Primary Care Unavailable CARRIE QUINTERO, DR ARUN Thompson Attending LAVELLE Granger Primary Care Unavailable LAVELLE DALY Referring Unavailable LAVELLE DALY Primary Care Unavailable SONDRA BARNETT Attending Unavailable LAVELLE DALY Referring Unavailable MARTELL LARSEN Attending Unavailable LAVELLE DALY Referring Unavailable LAVELLE DALY Primary Care Unavailable Medications Current Medications Medication Drug Class(es) Dates Sig (Normalized) Sig (Original) acetaminophen 250 mg / aspirin 250 mg / caffeine 65 mg oral tablet (2 sources) Platelet Aggregation Inhibitor, Nonsteroidal Anti-inflammatory Drug, Central Nervous System Stimulant, Methylxanthine Start: 10-24-2022 take 1 tablet by mouth every six hours Aspirin-Acetamino phen-Caffeine (Excedrin Extra Strength) 250-250-65 mg tablet Active 1 TABLET PO EVERY 6 HOURS October 24, 2022 1:00am clobetasol propionate 0.5 mg/ml topical cream (8 sources) Corticosteroid Start: 03-15-2016 End: 03-11-2024 clobetasol (TEMOVATE) 0.05 % cream Indications: Other psoriasis Apply 1 application to affected area two times a day as needed (psoriasis plaque). 60 g 11 03/11/2024 Active Comment on above: Apply 1 application to affected area twice daily as needed (psoriasis plaque). ibuprofen 800 mg oral tablet (4 sources) Nonsteroidal Anti-inflammatory Drug Start: 11-27-2022 take 800 mg by mouth every eight hours Ibuprofen Active 800 MG PO Q8H November 27, 2022 12:00am Start: 01-28-2020 End: 10-24-2022 Ibuprofen Discontinued 800 M G PO NEEDED January 28, 2020 12:00am October 24, 2022 10:27am meloxicam 7.5 mg oral tablet (7 sources) Nonsteroidal Anti-inflammatory Drug Start: 01-12-2023 take 1 tablet by mouth twice daily meloxicam (MOBIC) 7.5 mg tablet Take 7.5 mg by mouth twice daily. 01/12/2023 Active Comment on above: Take 7.5 mg by mouth twice daily. terbinafine 250 mg oral tablet (7 sources) Allylamine Antifungal Start: 03-11-2024 End: 06-18-2024 take 1 tablet by mouth once daily terbinafine HCl (LAMISIL) 250 mg tablet Take 1 tablet by mouth once daily. 90 tablet 1 06/18/2024 Active Completed/Discontinued Medications Medication Drug Class(es) Dates Sig (Normalized) Sig (Original) amoxicillin 500 mg oral capsule (2 sources) Penicillin-class Antibacterial Start: 02-21-2017 AMOXICILLIN 500 MG CAPS 2 capsules twice daily AMOXICILLIN [id number] Arun ROMERO cetirizine hydrochloride 10 mg oral tablet (1 source) Histamine-1 Receptor Antagonist Start: 03-26-2017 End: 02-13-2023 take 1 tablet by mouth once daily cetirizine (ZYRTEC) 10 mg tablet Indications: Seasonal allergic rhinitis due to pollen, unspecified chronicity Take 1 tablet by mouth once daily. 30 tablet 2 03/26/2017 02/13/2023 Discontinued Comment on above: Take 1 tablet by perla th once daily. fluticasone propionate 0.05 mg/actuat metered dose nasal spray (1 source) Corticosteroid Start: 03-05-2017 End: 02-13-2023 take 2 spray(s) by mouth once daily fluticasone (FLONASE) 50 mcg/actuation nasal spray Indications: Eustachian tube dysfunction, right Use 2 Sprays in each nostril once daily. Rinse mouth after use. 1 Bottle 11 03/05/2017 02/13/2023 Discontinued Comment on above: Use 2 Sprays in each nostril once daily. Rinse mouth after use. montelukast 10 mg oral tablet (1 source) Leukotriene Receptor Antagonist Start: 03-25-2018 End: 02-13-2023 take 1 tablet by mouth once daily at bedtime montelukast (SINGULAIR) 10 mg tablet Indications: Seasonal allergic rhinitis due to pollen Take 1 tablet by mouth daily at bedtime. For allergies 30 tablet 5 03/25/2018 02/13/2023 Discontinued Comment on above: Take 1 tablet by perla th daily at bedtime. For allergies PHENYLEPH-DOXYLAMIN E-DM-APAP CAPS (1 source) Start: 02-21-2017 [facility] NIGHT CLD/FLU CAPS as directed PHENYLEPH-DOXYLAM INE-DM-APAP CAPS [id number] Aleksandra Wilson LPN PHENYLEPH-DOXYLAMIN E-DM-APAP CAPS (1 source) Start: 02-21-2017 KARIME-TIARATZER PLS NIGHT CLD/FLU CAPS as directed PHENYLEPH-DOXYLAM INE-DM-APAP CAPS [id number] Aleksandra Wilson LPN Problems Active Problems Problem Classification Problem Date Documented Date Episodic/Chronic Coagulation and hemorrhagic disorders (9 sources) Chronic idiopathic thrombocytopenic purpura; Translations: [Immune thrombocytopenic purpura] Onset: 06-21-2016 06-21-2016 Chronic Osteoarthritis (15 sources) Osteoarthritis of left hip joint; Translations: [Unilateral primary osteoarthritis, left hip] Onset: 01-28-2020 Chronic Other and unspecified benign neoplasm (2 sources) History of polyp of colon; Translations: [Personal history of colonic polyps] 04-01-2019 Episodic Other and unspecified benign neoplasm (1 source) Personal history of colonic polyps; Translations: [Personal history of colonic polyps] 11-28-2022 Episodic Other ear and sense organ disorders (8 sources) Bilateral hearing loss; Translations: [Unspecified hearing loss, bilateral] Onset: 03-11-2024 03-11-2024 Chronic Other ear and sense organ disorders (1 source) Sensorineural hearing loss, bilateral; Translations: [Sensorineural hearing loss, bilateral] 08-04-2024 Chronic Other ear and sense organ disorders (1 source) Unspecified hearing loss, bilateral; Translations: [Bilateral hearing loss, unspecified hearing loss type] Onset: 03-11-2024 Chronic Other ear and sense organ disorders (2 sources) Bilateral tinnitus; Translations: [Tinnitus, bilateral] Onset: 08-19-2024 08-19-2024 Episodic Other inflammatory condition of skin (15 sources) Psoriasis; Translations: [Other psoriasis] Onset: 11-10-2005 11-10-2005 Chronic Other inflammatory condition of skin (1 source) Other psoriasis; Translations: [Other psoriasis] Onset: 11-10-2005 Chronic Other screening for suspected conditions (not mental disorders or infectious disease) (4 sources) Patient encounter status; Translations: [Encounter for screening for malignant neoplasm of colon] Onset: 07-02-2025 10-24-2022 Episodic Other skin disorders (3 sources) Skin lesion; Translations: [Disorder of the skin and subcutaneous tissue, unspecified] 03-20-2019 Episodic Spondylosis; intervertebral disc disorders; other back problems (2 sources) Lumbar radiculopathy; Translations: [Radiculopathy, lumbar region] Onset: 01-28-2025 Episodic Unclassified (2 sources) Other intervertebral disc degeneration, lumbar region with discogenic back pain only; Translations: [Other intervertebral disc degeneration, lumbar region with discogenic back pain only] Onset: 01-28-2025 Past or Other Problems Problem Classification Problem Date Documented Da te Episodic/Chronic Mycoses (7 sources) Onychomycosis; Translations: [Tinea unguium] Onset: 03-11-2024 03-11-2024 Episodic Other skin disorders (2 sources) Disorder of the skin and subcutaneous tissue, unspecified; Translations: [Unspecified disorder of skin and subcutaneous tissue] Onset: 12-26-2023 11-19-2023 Episodic Other skin disorders (1 source) Actinic keratosis; Translations: [Actinic keratosis] Onset: 05-24-2024 Episodic Other skin disorders (1 source) Inflamed seborrheic keratosis; Translations: [Inflamed seborrheic keratosis] Onset: 11-23-2023 Episodic Other upper respiratory disease (2 sources) Pain in throat; Translations: [Acute pharyngitis, unspecified] Onset: 02-21-2017 02-21-2017 Episodic Other upper respiratory infections (2 sources) Pharyngitis; Translations: [Acute pharyngitis, unspecified] Onset: 02-21-2017 02-21-2017 Episodic Otitis media and related conditions (2 sources) Otitis media; Translations: [Otitis media, unspecified, unspecified ear] Onset: 02-21-2017 02-21-2017 Episodic Results Test Name Value Interpretation Reference Range Facility 25(OH)D3 [facility] 2024 25-hydroxyvitamin D3 [Mass/Vol] 65.7 ng/mL Normal 31.0-80.0 [facility] Comment on above: Order Comment: Speci men Type: BLOOD SPECIMEN Ordering Facility: [facility] Address: [address] [place] [address] Performed By: #### 1 989-3 #### [facility] CLIA [id number] [address] [place] [address] [place] CBC W Auto Differential pane l (Bld)on 07-02-2025 Basophils (Bld) [#/Vol] 0.06 10*3/uL Normal <0.11 [facility] Comment on above: Order Comment: Speci men Type: BLOOD SPECIMEN Ordering Facility: [facility] Address: [address] [place] [address] Performed By: #### 5 7021-8 #### [facility] CLIA [id number] [address] [place] [address] [place] Basophils/100 WBC (Bld) 1.1 % Normal [facility] Comment on above: Order Comment: Speci men Type: BLOOD SPECIMEN Ordering Facility: [facility] Address: [address] [place] [address] Performed By: #### 5 7021-8 #### [facility] CLIA [id number] [address] [place] [address] [place] Differential cell count method Nom (Bld) Auto Normal [facility] Comment on above: Order Comment: Speci men Type: BLOOD SPECIMEN Ordering Facility: [facility] Address: [address] [place] [address] Performed By: #### 5 7021-8 #### [facility] CLIA [id number] [address] [place] [address] [place] Eosinophils (Bld) [#/Vol] 0.19 10*3/uL Normal <0.46 [facility] Comment on above: Order Comment: Speci men Type: BLOOD SPECIMEN Ordering Facility: [facility] Address: [address] [place] [address] Performed By: #### 5 7021-8 #### [facility] CLIA [id number] [address] [place] [address] [place] Eosinophils/100 WBC (Bld) 3.4 % Normal [facility] Comment on above: Order Comment: Speci men Type: BLOOD SPECIMEN Ordering Facility: [facility] Address: [address] [place] [address] Performed By: #### 5 7021-8 #### [facility] CLIA [id number] [address] [place] [address] [place] Erythrocyte distribution width (RBC) [Ratio] 12.4 % Normal 11.5-15.0 [facility] Comment on above: Order Comment: Speci men Type: BLOOD SPECIMEN Ordering Facility: [facility] Address: [address] [place] [address] Performed By: #### 5 7021-8 #### [facility] CLIA [id number] [address] [place] [address] [place] Hematocrit (Bld) [Volume fraction] 50.2 % Normal 39.0-51.0 [facility] Comment on above: Order Comment: Speci men Type: BLOOD SPECIMEN Ordering Facility: [facility] Address: [address] [place] [address] Performed By: #### 5 7021-8 #### [facility] CLIA [id number] [address] [place] [address] [place] Hemoglobin (Bld) [Mass/Vol] 16.9 g/dL Normal 13.0-17.0 [facility] Comment on above: Order Comment: Speci men Type: BLOOD SPECIMEN Ordering Facility: [facility] Address: [address] [place] [address] Performed By: #### 5 7021-8 #### [facility] CLIA [id number] [address] [place] [address] [place] Immature granulocytes (Bld) [#/Vol] 10*3/uL Normal <0.10 [facility] Comment on above: Order Comment: Speci men Type: BLOOD SPECIMEN Ordering Facility: [facility] Address: [address] [place] [address] Performed By: #### 5 7021-8 #### [facility] CLIA [id number] [address] [place] [address] [place] Immature granulocytes/100 WBC (Bld) 0.2 % Normal [facility] Comment on above: Order Comment: Speci men Type: BLOOD SPECIMEN Ordering Facility: [facility] Address: [address] [place] [address] Performed By: #### 5 7021-8 #### [facility] CLIA [id number] [address] [place] [address] [place] Lymphocytes (Bld) [#/Vol] 1.97 10*3/uL Normal 1.00-4.00 [facility] Comment on above: Order Comment: Speci men Type: BLOOD SPECIMEN Ordering Facility: [facility] Address: [address] [place] [address] Performed By: #### 5 7021-8 #### [facility] CLIA [id number] [address] [place] [address] [place] Lymphocytes/100 WBC (Bld) 35.1 % Normal [facility] Comment on above: Order Comment: Speci men Type: BLOOD SPECIMEN Ordering Facility: [facility] Address: [address] [place] [address] Performed By: #### 5 7021-8 #### [facility] CLIA [id number] [address] [place] [address] [place] MCH (RBC) [Entitic mass] 31.7 pg Normal 26.0-34.0 [facility] Comment on above: Order Comment: Speci men Type: BLOOD SPECIMEN Ordering Facility: [facility] Address: [address] [place] [address] Performed By: #### 5 7021-8 #### [facility] CLIA [id number] [address] [place] [address] [place] MCHC (RBC) [Mass/Vol] 33.7 g/dL Normal 30.5-36.0 [facility] Comment on above: Order Comment: Speci men Type: BLOOD SPECIMEN Ordering Facility: [facility] Address: [address] [place] [address] Performed By: #### 5 7021-8 #### [facility] CLIA [id number] [address] [place] [address] [place] MCV (RBC) [Entitic vol] 94.2 fL Normal 80.0-100.0 [facility] Comment on above: Order Comment: Speci men Type: BLOOD SPECIMEN Ordering Facility: [facility] Address: [address] [place] [address] Performed By: #### 5 7021-8 #### [facility] CLIA [id number] [address] [place] [address] [place] Monocytes (Bld) [#/Vol] 0.52 10*3/uL Normal <0.87 [facility] Comment on above: Order Comment: Speci men Type: BLOOD SPECIMEN Ordering Facility: [facility] Address: [address] [place] [address] Performed By: #### 5 7021-8 #### [facility] CLIA [id number] [address] [place] [address] [place] Monocytes/100 WBC (Bld) 9.3 % Normal [facility] Comment on above: Order Comment: Speci men Type: BLOOD SPECIMEN Ordering Facility: [facility] Address: [address] [place] [address] Performed By: #### 5 7021-8 #### [facility] CLIA [id number] [address] [place] [address] [place] Neutrophils (Bld) [#/Vol] 2.86 10*3/uL Normal 1.45-7.50 [facility] Comment on above: Order Comment: Speci men Type: BLOOD SPECIMEN Ordering Facility: [facility] Address: [address] [place] [address] Performed By: #### 5 7021-8 #### [facility] CLIA [id number] [address] [place] [address] [place] Neutrophils/100 WBC (Bld) 50.9 % Normal [facility] Comment on above: Order Comment: Speci men Type: BLOOD SPECIMEN Ordering Facility: [facility] Address: [address] [place] [address] Performed By: #### 5 7021-8 #### [facility] CLIA [id number] [address] [place] [address] [place] Nucleated RBC (Bld) [#/Vol] 10*3/uL Normal <0.01 [facility] Comment on above: Order Comment: Speci men Type: BLOOD SPECIMEN Ordering Facility: [facility] Address: [address] [place] [address] Performed By: #### 5 7021-8 #### [facility] CLIA [id number] [address] [place] [address] [place] Nucleated RBC/100 WBC (Bld) [Ratio] 0.0 /100 WBC Normal [facility] Comment on above: Order Comment: Speci men Type: BLOOD SPECIMEN Ordering Facility: [facility] Address: [address] [place] [address] Performed By: #### 5 7021-8 #### [facility] CLIA [id number] [address] [place] [address] [place] Platelet mean volume (Bld) [Entitic vol] 11.5 fL Normal 9.0-12.7 [facility] Comment on above: Order Comment: Speci men Type: BLOOD SPECIMEN Ordering Facility: [facility] Address: [address] [place] [address] Performed By: #### 5 7021-8 #### [facility] CLIA [id number] [address] [place] [address] [place] Platelets (Bld) [#/Vol] 139 10*3/uL Low 150-400 [facility] Comment on above: Order Comment: Speci men Type: BLOOD SPECIMEN Ordering Facility: [facility] Address: [address] [place] [address] Performed By: #### 5 7021-8 #### [facility] CLIA [id number] [address] [place] [address] [place] RBC (Bld) [#/Vol] 5.33 10*6/uL Normal 4.20-6.00 [facility] Comment on above: Order Comment: Speci men Type: BLOOD SPECIMEN Ordering Facility: [facility] Address: [address] [place] [address] Performed By: #### 5 7021-8 #### [facility] CLIA [id number] [address] [place] [address] [place] WBC (Bld) [#/Vol] 5.61 10*3/uL Normal 3.70-11.00 [facility] Comment on above: Order Comment: Speci men Type: BLOOD SPECIMEN Ordering Facility: [facility] Address: [address] [place] [address] Performed By: #### 5 7021-8 #### [facility] CLIA [id number] [address] [place] [address] [place] Comprehensive metabolic 2000 panelon 07-02-2025 Albumin [Mass/Vol] 4.3 g/dL Normal 3.9-4.9 [facility] Comment on above: Order Comment: Speci men Type: BLOOD SPECIMEN Ordering Facility: [facility] Address: [address] [place] [address] Performed By: #### 3 016-3, 44790-3, 03806-2, 2132-04 #### [facility] CLIA [id number] [address] [place] [address] [place] ALP [Catalytic activity/Vol] 70 U/L Normal 38-113 [facility] Comment on above: Order Comment: Speci men Type: BLOOD SPECIMEN Ordering Facility: [facility] Address: [address] [place] [address] Performed By: #### 3 016-3, 31710-3, 31887-9, 2132-04 #### [facility] CLIA [id number] [address] [place] [address] [place] ALT [Catalytic activity/Vol] 22 U/L Normal 10-54 [facility] Comment on above: Order Comment: Speci men Type: BLOOD SPECIMEN Ordering Facility: [facility] Address: [address] [place] [address] Performed By: #### 3 016-3, 79988-3, 09587-7, 2132-04 #### [facility] CLIA [id number] [address] [place] [address] [place] Anion gap [Moles/Vol] 10 mmol/L Normal 8-15 [facility] Comment on above: Order Comment: Speci men Type: BLOOD SPECIMEN Ordering Facility: [facility] Address: [address] [place] [address] Performed By: #### 3 016-3, 86586-0, 55183-2, 2132-04 #### [facility] CLIA [id number] [address] [place] [address] [place] AST [Catalytic activity/Vol] 21 U/L Normal 14-40 [facility] Comment on above: Order Comment: Speci men Type: BLOOD SPECIMEN Ordering Facility: [facility] Address: [address] [place] [address] Performed By: #### 3 016-3, 15442-6, 21102-8, 2132-04 #### [facility] CLIA [id number] [address] [place] [address] [place] Bilirubin [Mass/Vol] 0.5 mg/dL Normal 0.2-1.3 [facility] Comment on above: Order Comment: Speci men Type: BLOOD SPECIMEN Ordering Facility: [facility] Address: [address] [place] [address] Performed By: #### 3 016-3, 74283-9, 07789-1, 2132-04 #### [facility] CLIA [id number] [address] [place] [address] [place] Calcium [Mass/Vol] 9.7 mg/dL Normal 8.5-10.2 [facility] Comment on above: Order Comment: Speci men Type: BLOOD SPECIMEN Ordering Facility: [facility] Address: [address] [place] [address] Performed By: #### 3 016-3, 28215-8, 86327-2, 2132-04 #### [facility] CLIA [id number] [address] [place] [address] [place] Chloride [Moles/Vol] 105 mmol/L Normal 98-107 [facility] Comment on above: Order Comment: Speci men Type: BLOOD SPECIMEN Ordering Facility: [facility] Address: [address] [place] [address] Performed By: #### 3 016-3, 56881-8, 69763-2, 2132-04 #### [facility] CLIA [id number] [address] [place] [address] [place] CO2 [Moles/Vol] 25 mmol/L Normal 22-30 [facility] Comment on above: Order Comment: Speci men Type: BLOOD SPECIMEN Ordering Facility: [facility] Address: [address] [place] [address] Performed By: #### 3 016-3, 67205-4, 97235-6, 2132-04 #### [facility] CLIA [id number] [address] [place] [address] [place] Creatinine [Mass/Vol] 1.08 mg/dL Normal 0.73-1.22 [facility] Comment on above: Order Comment: Speci men Type: BLOOD SPECIMEN Ordering Facility: [facility] Address: [address] [place] [address] Performed By: #### 3 016-3, 30889-2, 66152-6, 2132-04 #### [facility] CLIA [id number] [address] [place] [address] [place] eGFRcr SerPlBld CKD-EPI 2020 77 mL/min/1.73m??? Normal >=60 [facility] Comment on above: Order Comment: Speci men Type: BLOOD SPECIMEN Ordering Facility: [facility] Address: [address] [place] [address] Result Comment: Scarlet mated Glomerular Filtration Rate (eGFR) is calculated using the 2020 CKD-EPI creatinine equation. This equation utilizes serum creatinine, sex, and age as parameters. The creatinine assay has traceable calibration to isotope dilution-mass spectrometry. Refer to KDIGO guidelines for clinical interpretation. In patients with unstable renal function, e.g. those with acute kidney injury, the eGFR may not accurately reflect actual GFR. Performed By: #### 3 016-3, 47780-1, 05637-4, 2132-04 #### [facility] CLIA [id number] [address] [place] [address] [place] Glucose [Mass/Vol] 101 mg/dL High 74-99 [facility] Comment on above: Order Comment: Eugenio rollins Type: BLOOD SPECIMEN Ordering Facility: [facility] Address: [address] [place] [address] Result Comment: The [place] [employer] (ADA) provides guidance for cutoff values for fasting glucose and random glucose. The ADA defines fasting as no caloric intake for at least 8 hours. Fasting plasma glucose results between 100 to 125 mg/dL indicate increased risk for diabetes (prediabetes). Fasting plasma glucose results greater than or equal to 126 mg/dL meet the criteria for diagnosis of diabetes. In the absence of unequivocal hyperglycemia, results should be confirmed by repeat testing. In a patient with classic symptoms of hyperglycemia or hyperglycemic crisis, random plasma glucose results greater than or equal to 200 mg/dL meet the criteria for diagnosis of diabetes. Reference: Standards of Medical Care in Diabetes 2016, [place] [employer]. Diabetes Care. 2016.39(Suppl 1). Performed By: #### 3 016-3, 53469-9, , 2132-04 #### [facility] CLIA [id number] [address] [place] [address] [place] Potassium [Moles/Vol] 5.2 mmol/L High 3.7-5.1 [facility] Comment on above: Order Comment: Eugenio rollins Type: BLOOD SPECIMEN Ordering Facility: [facility] Address: [address] [place] [address] Performed By: #### 3 016-3, 83490-4, 67741-4, 2132-04 #### [facility] CLIA [id number] [address] [place], [place] [address] [place] Protein [Mass/Vol] 6.9 g/dL Normal 6.3-8.0 [facility] Comment on above: Order Comment: Speci men Type: BLOOD SPECIMEN Ordering Facility: [facility] Address: [address] [place] [address] Performed By: #### 3 016-3, 96532-2, 48015-4, 2132-04 #### [facility] CLIA [id number] [address] [place] [address] [place] Sodium [Moles/Vol] 140 mmol/L Normal 136-144 [facility] Comment on above: Order Comment: Speci men Type: BLOOD SPECIMEN Ordering Facility: [facility] Address: [address] [place] [address] Performed By: #### 3 016-3, 32731-5, 28417-1, 2132-04 #### [facility] CLIA [id number] [address] [place] [address] [place] Urea nitrogen [Mass/Vol] 17 mg/dL Normal 9-24 [facility] Comment on above: Order Comment: Speci men Type: BLOOD SPECIMEN Ordering Facility: [facility] Address: [address] [place] [address] Performed By: #### 3 016-3, 79356-0, 71511-7, 2132-04 #### [facility] CLIA [id number] [address] [place] [address] [place] HbA1c (Bld)on 07-02-2025 Average glucose Estimated from glycated hemoglobin (Bld) [Mass/Vol] 100 mg/dL Normal [facility] Comment on above: Order Comment: Speci men Type: BLOOD SPECIMENOrdering Facility: [facility] Address: [address] [place] [address] Result Comment: eAG: (Estimated average glucose) is a calculated value from HgbA1c and is credit representative of the average blood glucose level in the last 2-3 month period. Performed By: #### 5 5454-3 ####[facility] [id number] [place] [address] [place] HbA1c (Bld) [Mass fraction] 5.1 % Normal 4.3-5.6 [facility] Comment on above: Order Comment: Eugenio rollins Type: BLOOD SPECIMENOrdering Facility: [facility] Address: [address] [place] [address] Result Comment: [place] Diabetes Association guidelines indicate that patients with HgbA1c in the range 5.7-6.4% are at increased risk for development of diabetes, and intervention by lifestyle modification may be beneficial. HgbA1c greater or equal to 6.5% is considered diagnostic of diabetes. Performed By: #### 5 5454-3 ####[facility] [id number] [place] [address] [place] Lipid 1996 panelon 5 Cholesterol [Mass/Vol] 168 mg/dL Normal <200 [facility] Comment on above: Order Comment: Eugenio rollins Type: BLOOD SPECIMEN Ordering Facility: [facility] Address: [address] [place] [address] Result Comment: <200 mg/dL, Desirable 200-239 mg/dL, Borderline high >239 mg/dL, High Performed By: #### 3 016-3, 12913-6, 73421-5, 2132-04 #### [facility] CLIA [id number] [address] [place] [address] [place] Cholesterol in HDL [Mass/Vol] 44 mg/dL Normal >39 [facility] Comment on above: Order Comment: Eugenio rollins Type: BLOOD SPECIMEN Ordering Facility: [facility] Address: [address] [place] [address] Result Comment: 40-5 9 mg/dL, Acceptable >59 mg/dL, High: Negative risk factor for coronary heart disease <40 mg/dL, Low: Positive risk factor for coronary heart disease Performed By: #### 3 016-3, 65165-4, 81821-7, 2132-04 #### [facility] CLIA [id number] [address] [place] [address] [place] Cholesterol in LDL [Mass/Vol] 112 mg/dL High <100 [facility] Comment on above: Order Comment: Eugenio rollins Type: BLOOD SPECIMEN Ordering Facility: [facility] Address: [address] [place] [address] Result Comment: <100 mg/dL, Optimal 100-129 mg/dL, Near optimal/above optimal 130-159 mg/dL, Borderline high 160-189 mg/dL, High >189 mg/dL, Very high Secondary prevention optimal LDL Cholesterol levels are recommended to be <70 mg/dL LDL cholesterol is calculated using the Shaw-NIH equation. Performed By: #### 3 016-3, 40880-6, 87502-7, 2132-04 #### [facility] CLIA [id number] [address] [place] [address] [place] Cholesterol in LDL/Cholesterol in HDL [Mass ratio] 2.55 {ratio} High <2.54 [facility] Comment on above: Order Comment: Eugenio rollins Type: BLOOD SPECIMEN Ordering Facility: [facility] Address: [address] [place] [address] Result Comment: Refe harrison: 1. National Cholesterol Education Program ATP III Guideline At-A-Glance Quick Desk Reference: National Heart, Lung, and Blood [place]. National Institutes of Health. 2001: NIH Publication No. 01-3305. 2. An International Atherosclerosis Society position paper: global recommendations for the management of dyslipidemia: executive summary, Atherosclerosis. 2014: 232(2):410-413. Performed By: #### 3 016-3, 36206-3, , 2132-04 #### [facility] CLIA [id number] [address] [place] [address] [place] Cholesterol in VLDL [Mass/Vol] 11 mg/dL Normal <30 [facility] Comment on above: Order Comment: Eugenio rollins Type: BLOOD SPECIMEN Ordering Facility: [facility] Address: [address] [place] [address] Performed By: #### 3 016-3, 80762-1, 03819-4, 2132-04 #### [facility] CLIA [id number] [address] [place] [address] [place] Cholesterol non HDL [Mass/Vol] 124 mg/dL Normal <130 [facility] Comment on above: Order Comment: Speci men Type: BLOOD SPECIMEN Ordering Facility: [facility] Address: [address] [place] [address] Result Comment: <130 mg/dL, Optimal 130-159 mg/dL, Near optimal/above optimal 160-189 mg/dL, Borderline high 190-219 mg/dL, High >219 mg/dL, Very high Secondary prevention optimal non HDL Cholesterol levels are recommended to be <100 mg/dL Performed By: #### 3 016-3, 46634-8, 33060-4, 2132-04 #### [facility] CLIA [id number] [address] [place] [address] [place] Cholesterol.total /Cholesterol in HDL [Mass ratio] 3.82 {ratio} Normal <5.10 [facility] Comment on above: Order Comment: Speci men Type: BLOOD SPECIMEN Ordering Facility: [facility] Address: [address] [place] [address] Performed By: #### 3 016-3, 35097-7, 87215-8, 2132-04 #### [facility] CLIA [id number] [address] [place] [address] [place] FASTING TIME 14 hrs Normal [facility] Comment on above: Order Comment: Speci men Type: BLOOD SPECIMEN Ordering Facility: [facility] Address: [address] [place] [address] Performed By: #### 3 016-3, 35714-4, 74597-2, 2132-04 #### [facility] CLIA [id number] [address] [place] [address] [place] Triglyceride [Mass/Vol] 63 mg/dL Normal <150 [facility] Comment on above: Order Comment: Speci men Type: BLOOD SPECIMEN Ordering Facility: [facility] Address: [address] [place] [address] Result Comment: <150 mg/dL, Normal 150-199 mg/dL, Borderline high 200-499 mg/dL, High >499 mg/dL, Very high Performed By: #### 3 016-3, 05737-1, 21394-7, 2132-04 #### [facility] CLIA [id number] [address] [place] [address] [place] PSA/PROSTATE SPECIFIC ANTIGE N SCREENINGon 07-02-2025 Prostate specific Ag [Mass/Vol] 0.48 ng/mL Normal <2.60 [facility] Comment on above: Order Comment: Speci men Type: BLOOD SPECIMEN Ordering Facility: [facility] Address: [address] [place] [address] Result Comment: Tota l PSA test methodology used is the Electrochemiluminescence Immunoassay by Nat Televerde. Total PSA values by differing methodologies cannot be interchanged. Performed By: #### P SAS1 #### [facility] CLIA [id number] [address] [place] [address] [place] TSH SerPl-aCncon 07-02-2025 TSH Qn 1.980 m[IU]/L Normal 0.270-4.200 [facility] Comment on above: Order Comment: Speci men Type: BLOOD SPECIMEN Ordering Facility: [facility] Address: [address] [place] [address] Performed By: #### 3 016-3, 14228-9, 76496-9, 2132-04 #### [facility] CLIA [id number] [address] [place] [address] [place] Urinalysis complete panel (U )on 07-02-2025 Bacteria LM.HPF (Urine sed) [#/Area] Negative Normal Negative [facility] Comment on above: Order Comment: Speci men Type: URINE SPECIMEN Ordering Facility: [facility] Address: [address] [place] [address] Performed By: #### 2 4356-8 #### [facility] CLIA [id number] [address] [place] [address] [place] Bilirubin Ql (U) Negative Normal Negative [facility] Comment on above: Order Comment: Speci men Type: URINE SPECIMEN Ordering Facility: [facility] Address: [address] [place] [address] Performed By: #### 2 4356-8 #### [facility] CLIA [id number] [address] [place] [address] [place] Clarity (Unsp spec) Clear Normal Clear [facility] Comment on above: Order Comment: Speci men Type: URINE SPECIMEN Ordering Facility: [facility] Address: [address] [place] [address] Performed By: #### 2 4356-8 #### [facility] CLIA [id number] [address] [place] [address] [place] Color (U) Yellow Normal Yellow [facility] Comment on above: Order Comment: Speci men Type: URINE SPECIMEN Ordering Facility: [facility] Address: [address] [place] [address] Performed By: #### 2 4356-8 #### [facility] CLIA [id number] [address] [place] [address] [place] Epithelial cells LM.HPF (Urine sed) [#/Area] None Seen Normal [facility] Comment on above: Order Comment: Speci men Type: URINE SPECIMEN Ordering Facility: [facility] Address: [address] [place] [address] Performed By: #### 2 4356-8 #### [facility] CLIA [id number] [address] [place] [address] [place] Glucose Test strip (U) [Mass/Vol] Negative Normal Negative [facility] Comment on above: Order Comment: Speci men Type: URINE SPECIMEN Ordering Facility: [facility] Address: [address] [place] [address] Performed By: #### 2 4356-8 #### [facility] CLIA [id number] [address] [place] [address] [place] Hemoglobin Ql (U) Negative Normal Negative [facility] Comment on above: Order Comment: Speci men Type: URINE SPECIMEN Ordering Facility: [facility] Address: [address] [place] [address] Performed By: #### 2 4356-8 #### [facility] CLIA [id number] [address] [place] [address] [place] Hyaline casts (Urine sed) [#/Area] 0 /[LPF] Normal 0 /LPF [facility] Comment on above: Order Comment: Speci men Type: URINE SPECIMEN Ordering Facility: [facility] Address: [address] [place] [address] Performed By: #### 2 4356-8 #### [facility] CLIA [id number] [address] [place] [address] [place] Ketones Ql (U) Negative Normal Negative [facility] Comment on above: Order Comment: Speci men Type: URINE SPECIMEN Ordering Facility: [facility] Address: [address] [place] [address] Performed By: #### 2 4356-8 #### [facility] CLIA [id number] [address] [place] [address] [place] Leukocyte esterase Test strip Ql (U) Negative Normal Negative [facility] Comment on above: Order Comment: Speci men Type: URINE SPECIMEN Ordering Facility: [facility] Address: [address] [place] [address] Performed By: #### 2 4356-8 #### [facility] CLIA [id number] [address] [place] [address] [place] Nitrite Ql (U) Negative Normal Negative [facility] Comment on above: Order Comment: Speci men Type: URINE SPECIMEN Ordering Facility: [facility] Address: [address] [place] [address] Performed By: #### 2 4356-8 #### [facility] CLIA [id number] [address] [place] [address] [place] pH (U) 7.0 [pH] Normal 5.0-8.0 [facility] Comment on above: Order Comment: Speci men Type: URINE SPECIMEN Ordering Facility: [facility] Address: [address] [place] [address] Performed By: #### 2 4356-8 #### [facility] CLIA [id number] [address] [place] [address] [place] Protein (U) [Mass/Vol] Negative Normal Negative [facility] Comment on above: Order Comment: Speci men Type: URINE SPECIMEN Ordering Facility: [facility] Address: [address] [place] [address] Performed By: #### 2 4356-8 #### [facility] CLIA [id number] [address] [place] [address] [place] RBC LM.HPF (Urine sed) [#/Area] 0-2 /HPF Normal 0-2 /HPF [facility] Comment on above: Order Comment: Speci men Type: URINE SPECIMEN Ordering Facility: [facility] Address: [address] [place] [address] Performed By: #### 2 4356-8 #### [facility] CLIA [id number] [address] [place] [address] [place] Specific gravity (U) [Rel density] 1.019 Normal 1.005-1.030 [facility] Comment on above: Order Comment: Speci men Type: URINE SPECIMEN Ordering Facility: [facility] Address: [address] [place] [address] Performed By: #### 2 4356-8 #### [facility] CLIA [id number] [address] [place] [address] [place] Urobilinogen Ql (U) 0.2 EU/dL Normal 0.2-1.0 EU/dL [facility] Comment on above: Order Comment: Speci men Type: URINE SPECIMEN Ordering Facility: [facility] Address: [address] [place] [address] Performed By: #### 2 4356-8 #### [facility] CLIA [id number] [address] [place] [address] [place] WBC LM.HPF (Urine sed) [#/Area] 0-5 /HPF Normal 0-5 /HPF [facility] Comment on above: Order Comment: Speci men Type: URINE SPECIMEN Ordering Facility: [facility] Address: [address] [place] [address] Performed By: #### 2 4356-8 #### [facility] CLIA [id number] [address] [place] [address] [facility] Vit B12 [facility] 06- 025 Cobalamin (Vitamin B12) [Mass/Vol] 702 pg/mL Normal 232-1245 [facility] Comment on above: Order Comment: Speci men Type: BLOOD SPECIMEN Ordering Facility: [facility] Address: [address] [place] [address] Performed By: #### 3 016-3, 37868-6, 69690-6, 2132-9 #### [facility] CLIA [id number] [address] [place] [address] [facility] Urgent Care Visit Reporton 0 09-25-2024 Urgent Care Visit Report [facility] [address], [address] [place] [address] OFFICE VISIT Date of Service: 09/25/24 MR#: [id number] Acct: [id number] Name: NELSON MASSEY Rep #: [id number] : 1960 Provider: NICK Barcenas Age/Sex: 64/M Location: [facility] Status: Signed Intake Vital Signs 08/25/24 13:32 09/25/24 15:23 Height 6 ft 4 in Weight: 248 lb 6 oz BMI 30.2 BP 120/70 136/70 H Blood Pressure Location Lt brachial Lt brachial Position Sitting Sitting Respiration 12 16 Pulse 65 67 Pulse Source NIBP NIBP Temp 97.9 F 98.2 F Temp Source Oral Oral Pulse Oximetry (%) 99 98 Oxygen Delivery Method room air room air Intake Visit Reasons: CONCERN FOR SINUS INFECTION Chief Complaint: SHELTON, face/teeth pain [employer]n Required: No Is patient in pain?: Yes Allergies No Known Allergies Allergy (Verified 09/25/24 15:28) Have you fallen in the past year?: No Nurse's Note: SHELTON, face/teeth pain x 1 week. seen here 08/25 dxd with sinus infection and given Augmentin 875mg x 7 days. s/s returned, feels same. [facility] Medical History (Updated 08/25/24 @ 13:36 by NANETTE Cooper) Bacterial sinusitis Wears contact lenses Alcohol use Psoriasis Arthritis Smoker History of pain when walking History of edema Skin lesions Constipation Back problem Surgical History Hx of total hip arthroplasty H/O colonoscopy Family History Father Diabetes Colon polyps Social History Smoking Status: Current every day smoker tobacco type: cigars alcohol intake: current alcohol intake frequency: a few times a month HPI HPI Chief Complaint: SHELTON, face/teeth pain Details: NELSON MASSEY, is a 64 M who presents to the office today for complaint of headache, facial pain and tooth pain. Patient denies fever, chills, sweats. No nausea, vomiting or diarrhea. He does state that he started with a sinus infection previously and was given an antibiotic and had complete resolution of his symptoms however once some of his antibiotics they returned. Patient denies nausea, vomiting, diarrhea. No other associated symptoms or alleviating/aggravating factors. ROS Const Constitutional: No other (6 system ROS completed with pertinent findings in the HPI otherwise normal.) Exam Const General: cooperative and healthy appearing [facility] Head: normal to inspection Ears: hearing grossly normal bilaterally, TM's normal bilaterally and EAC's normal Nose: nasal discharge purulent Face and sinus: sinus tenderness frontal and maxillary Mouth: oral mucosae normal Throat: abnormal tonsil bilaterally erythema and hypertrophy 1+ and postnasal drainage Resp Effort Inspection: normal respiratory effort Auscultation: Bilateral: Clear to Auscultation Cardio Palpation: normal PMI Rate: regular rate Rhythm: regular rhythm Neuro General: patient alert and CN's II-XI intact bilaterally Psych Appearance: grossly normal Mental Status: mental status grossly normal Coding Level of Care Code Off vis,new,level 3 Diagnoses Bacterial sinusitis J32.9; B96.89 Assessment and Plan Assessment and Plan (1) Bacterial sinusitis: Status: Acute Plan: Augmentin and Medrol Dosepak as prescribed today. Encouraged to get plenty of rest, drink lots of clear liquids, and use Tylenol or Ibuprofen (unless contraindicated) for fever and comfort. Patient also educated on other symptomatic management techniques. To be seen in 7-10 days if no improvement; sooner if worsening of symptoms. Patient advised of potential red flags and when appropriate to report to the ED. Patient verbalized understanding and agreement with all the above. Medications: New amoxicillin-pot clavulanate 875-125 mg 1 TAB PO Q12H 20 tabs 0RF 10 days J01.90 - Acute sinusitis, unspecified methylprednisolone (Medrol (Yair)) 4 mg PO PER PKG DIR 21 tabs 0RF 6 days Clinical Quality Measures Falls Risk Screening/Assistive Devices Have you fallen in the past year?: No 09/25/24 1632 Date Tejas Pulliam Signature: Date (if applicable) CC: Normal [facility] Urgent Care Visit Reporton 1 Urgent Care Visit Report [facility] [address], [address] [place] [address] OFFICE VISIT Date of Service: 08/25/24 MR#: [id number] Acct: [id number] Name: NELSON MASSEY Rep #: [id number] : 1960 Provider: NANETTE Lin Age/Sex: 64/M Location: [facility] Status: Signed Intake Vital Signs 10/01/23 07:08 08/25/24 13:32 Height 6 ft 4 in 6 ft 4 in Weight: 248 lb 6 oz BMI 30.2 BP 120/70 Blood Pressure Location Lt brachial Position Sitting Respiration 12 Pulse 65 Pulse Source NIBP Temp 97.9 F Temp Source Oral Pulse Oximetry (%) 99 Oxygen Delivery Method room air Intake Visit Reasons: SINUS COMPLAINT Chief Complaint: sinus complaint, pressure in face and teeth [employer] Required: No Is patient in pain?: No Allergies No Known Allergies Allergy (Verified 08/25/24 13:33) Have you fallen in the past year?: No Nurse's Note: patient here for sinus complaint, states has pressure in face, achiness in teeth from sinus pressure x1 week. [facility] Medical History (Updated 08/25/24 @ 13:36 by NANETTE Cooper) Bacterial sinusitis Wears contact lenses Alcohol use Psoriasis Arthritis Smoker History of pain when walking History of edema Skin lesions Constipation Back problem Surgical History Hx of total hip arthroplasty H/O colonoscopy Family History Father Diabetes Colon polyps Social History Smoking Status: Current every day smoker tobacco type: cigars alcohol intake: current alcohol intake frequency: a few times a month HPI HPI Chief Complaint: sinus complaint, pressure in face and teeth Details: NELSON MASSEY, is a 64 M who presents to the office today for HPI: ROS: As noted in HPI Patient presents today for complaints of about 8 days of sinus pain and pressure. He notes episodic fever. He otherwise denies any cough or congestion. Denies any ear pain or sore throat. States his symptoms feel typical of his previous sinus infections. Physical Exam: VITALS: Reviewed. GEN: Healthy appearing, well-developed, NAD. PSYCH: AOx3. Normal memory, mood, and affect. HEENT -Eyes: -No discharge or redness; -Ears: -Mouth and throat: Moist mucous membranes. NECK: CV: Regular rate and rhythm LUNGS: Normal respiratory effort. Lungs clear bilaterally. SKIN: Warm, well perfused. No skin rashes or abnormal lesions noted. MSK: Normal gait. NEURO: Ambulating with no limitations. Normal muscle strength and tone. No focal deficits. Coding Level of Care Code Off vis,new,level 3 Diagnoses Bacterial sinusitis J32.9; B96.89 Assessment and Plan Assessment and Plan (1) Bacterial sinusitis: Status: Acute Plan: As patient notes 8 days of worsening symptoms consistent with his previous sinus infections he was started on Augmentin twice daily x 7 days. He will otherwise use axxf-vne-ityrifd treatments as needed and follow-up with PCP. Medications: New amoxicillin-pot clavulanate 875-125 mg 1 TAB PO BID 14 tabs 0RF 7 days Clinical Quality Measures Falls Risk Screening/Assistive Devices Have you fallen in the past year?: No 08/25/24 1336 Date Mohinder Lin NP-C Cosigner Signature: Date (if applicable) CC: Normal [facility] CNOVon 08-04-2024 [facility] Office Visit (OTOLMM ) NELSON MASSEY ([id number]) 1960 M Date Time Provider Department 08/04/24 2:30 PM SONDRA BARNETT OTOLMM During your visit today, we recorded the following information about you: Sondra Barnett MD 08/04/2024 3:33 PM Signed HPI Nelson Balderas Shilpa is a 64 year old male who presents with hearing loss. 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 ROS General Weight loss: No Fatigue: No Night sweats:No Cardiac Chest pain:No Fast heart rate:No Swelling in the feet:No Respiratory Short of breath:No Cough:No Wheezing:No Gastrointestinal Nausea:No Vomiting:No Indigestion:No Past medical history, family history, and social history reviewed. PE There were no vitals taken for this visit. General: Patient is awake, alert, NAD. Voice is normal. Skin: normal Eyes: Extraocular motion and Gaze is normal. Ears: Right external auditory canal is normal. TMJ: normal. Right tympanic membranes normal. Left external auditory canal is normal. Left tympanic membrane normal. Nose: Septum is normal. Turbinates are normal. Nasopharynx:normal Oral Cavity/Oropharynx: Lips normal Dentition normal Tongue normal. Tonsils normal. Palate and uvula normal. Pharynx posterior normal Hypopharynx: Base of tongue normal Pyriform sinus normal. Larynx: Vocal cords normal. Epiglottis normal. Post cricoid normal. Salivary glands: Parotid normal. Submandibular and sublingual normal. Thyroid: normal. Lymphatic/Neck: Lymph nodes normal. Neurologic: Facial nerve normal. Audiogram reviewed ASSESSMENT/PLAN: 1. Sensorineural hearing loss (SNHL) of both ears - ICD9: 389.18, ICD10: H90.3 Consider hearing aid evaluation if communication becomes more difficult Sondra Barnett MD Findings will be communicated to the referring physician via mail or electronic medical record. Referring Provider: LAVELLE DALY [[id number]] Allergies As of Date: 08/04/2024 (No Known Allergies) Date Reviewed: 08/04/2024 Reviewed by: Angela Fairchild Ma - Fully Assessed Reason for Visit: audio today [Other] Hearing Loss [1119] Primary Visit Diagnosis:Sensorineural hearing loss (SNHL) of both ears [H90.3] Prescriptions as of 08/04/2024 - terbinafine HCl (LAMISIL) 250 mg tablet Take 1 tablet by mouth once daily. - clobetasol (TEMOVATE) 0.05 % cream Apply 1 application to affected area two times a day as needed (psoriasis plaque). - meloxicam (MOBIC) 7.5 mg tablet Take 7.5 mg by mouth twice daily. Meds Comments as of 03/15/2016: Fat burner supplement Problem List As Of Date 08/04/2024 Noted Resolved PSORIASIS [L40.8] 11/10/2005 Chronic ITP (idiopathic thrombocytopenia) (HCC)*06/21/2016 Psoriasis [L40.9] Primary osteoarthritis of right hip [M16.11] 01/28/2020 Primary osteoarthritis of left hip [M16.12] 02/12/2023 Well adult exam [Z00.00] 03/11/2024 Bilateral hearing loss [H91.93] 03/11/2024 Onychomycosis [B35.1] 03/11/2024 Encounter Status:Closed by SONDRA BARNETT on 08/04/24 [facility] Office Visit (OTAUME ) SHILPANELSON Balderas ([id number]) 1960 M Date Time Provider Department 08/04/24 2:00 PM MARTELL LARSEN During your visit today, we recorded the following information about you: Martell Larsen, WALLACE 08/19/2024 8:49 AM Signed [facility] [place] AUDIOLOGIC EVALUATION REPORT Name: Nelson Massey CC#: [id number] Date of Service: 08/04/2024 Date of : 1960 Age: [age] year old Referred by: Self Referred for: Evaluation of suspected change in hearing, tinnitus, or balance. Referral documented: No referral on file Patient's major complaints: Hearing loss: general decline in each ear Tinnitus: bilateral Ear pain: denied Aural fullness: denied Otorrhea: denied History of ear infections: denied History of otologic surgeries: denied Dizziness: denied Noise exposure: years ago- no hearing protection History of chemotherapy or radiation: denied History of head trauma: concussion high school sports Nelson Massey was seen for an initial audiologic evaluation. See SmartForm Audiogram for additional reported history and symptoms. Risk of Falls Documentation for over 65 years old: Does not apply IMPRESSIONS RIGHT EAR: Sensorineural hearing loss LEFT EAR: Sensorineural hearing loss AUDIOLOGIC EVALUATION Following is a brief interpretation of the obtained findings from the audiologic evaluation. Refer to the Auditory Test Record for complete audiometric results. The patient was counseled about the test findings and appropriate audiologic recommendations were made. SUMMARY: Audiogram can be viewed under Forms/Audiology/SmartForm. OTOSCOPY RIGHT EAR: Otoscopic inspection revealed ear canal was clear with an identifiable cone of light. LEFT EAR: Otoscopic inspection revealed ear canal was clear with an identifiable cone of light. TYMPANOMETRY Description of procedure: This test is an objective evaluation of middle ear function. CPT code: 21886 RIGHT EAR: Did not test. LEFT EAR: Did not test. ACOUSTIC REFLEXES Description of procedure: This test is an objective measure of auditory and facial nerve pathways. CPT code: 79999, 40137 RIGHT EAR PROBE EAR: (ipsi right stimulus ear; contralateral left stimulus ear): Acoustic Reflex Pattern Did not test Acoustic Reflex Decay (left stimulus ear): Did not test. LEFT EAR PROBE EAR: (ipsi left stimulus ear; contralateral right stimulus ear): Acoustic Reflex Pattern Did not test Acoustic Reflex Decay (right stimulus ear):Did not test. PURE TONE AUDIOMETRY AND SPEECH TESTING Description of procedure: This test is an objective evaluation hearing sensitivity via air and bone conduction and speech recognition testing. CPT code:80795 RIGHT EAR: Hearing Sensitivity: Mild sloping to severe SNHL Word Recognition Score: Excellent (100%). WRS is consistent with hearing sensitivity. Words were presented at 70 dB HL is above (greater than or equal to 60 dB HL) intensity level for average conversational speech. The NU-6 Ordered by Difficulty Word List (10 words) was used for testing. LEFT EAR: Hearing Sensitivity: Mild sloping to severe SNHL Word Recognition Score: Good (88%). WRS is consistent with hearing sensitivity. Words were presented at 70 dB HL which is above (greater than or equal to 60 dB HL) intensity level for average conversational speech. The NU-6 Ordered by Difficulty Word List (25 words) was used for testing. RECOMMENDATIONS * Continue medical follow-up with Sondra Barnett MD. * The patient was counseled regarding the need to continue to monitor hearing and have regular hearing assessments. * Call [phone] to schedule an appointment to assess your need for hearing aids. Request a HAE appointment. * Encouraged patient to reach out to insurance provider to determine if they are eligible for a hearing aid benefit. Patient was advised that if they return to [facility], the cost of hearing aids would likely be [id number]. Wallace Lara, [facility] Clinical and Senior Hearing Implant Analysis Tester copied to: MD BILL Williamson- jbion Definition Degree of hearing sensitivity dB range WNL within normal limits WNL 0 - 20 SNHL sensorineural hearing loss Mild 20-40 CHL conductive hearing loss Moderate 40-55 MHL mixed hearing loss Moderately-Severe 55-70 WRS word recognition score Severe 70-90 ME middle ear Profound 90 + TM tympanic membrane Referring Provider: LAVELLE DALY [[id number]] Allergies As of Date: 08/04/2024 (No Known Allergies) Date Reviewed: 08/04/2024 Reviewed by: Angela Fairchild Ma - Fully Assessed Primary Visit Diagnosis:Tinnitus of both ears [H93.13] Other Visit Diagnosis:Bilateral hearing loss, unspecified hearing loss type [H91.93] Order(s):CONSULT TO ENT [9008] Order #: [id number]: 1 HEARING TEST/AUDIOGRAM [0933100] Order #: [id number] (more content not included)... Normal [facility] HEARING TEST/AUDIOGRAMon [facility] Surgery Specimen Level Yordy 05-02-2024 Surgery Specimen Level IV Patient Age/Sex Location Account Attending Physician NELSON MASSEY 64/M LABSPEC [id number] Dr. Noe Encinas MD Specimen: [id number] Received: 05/02/24 Status: MAG Rich Num: [id number] Spec Type: Lesion Subm Dr: Dr. Noe Encinas MD HEADER OPERATION: Right lower eyelid lesion PRE-OP DIAGNOSIS: Lesion TISSUE SUBMITTED: Right lower eyelid lesion MICROSCOPIC DIAGNOSIS Lower eyelid lesion, biopsy: Fragments of inflamed seborrheic keratosis and with features of actinic keratosis. Negative for malignancy. See comment. / 05/05/2024 COMMENT Clinical correlation and appropriate follow up are necessary. MICROSCOPIC DESCRIPTION Slides are reviewed. GROSS DESCRIPTION Received in fixative is one container labeled with the patient's name and designated Right lower lid. The specimen consists of two fragments of magallanes-white and magallanes-brown skin each measuring 0.2 x 0.2 x 0.1 cm. The specimen is totally submitted in one cassette. [facility] 05/05/2024 TC:5 CPT:74396 Patient Age/Sex Location Account Attending Physician NELSON MASSEY 64/M LABSPEC [id number] Dr. Noe Encinas MD Signed (signature on file) Dr. Nimesh Saini MD 05/05/24 1049 Normal [facility] Comment on above: Performed By: #### P SUIV #### [facility] [address] [place] [address]. [place], [place], [id number] CBC W Auto Differential pane l (Bld)on 03-11-2024 Basophils (Bld) [#/Vol] 0.05 10*3/uL [facility] Basophils/100 WBC (Bld) 0.8 % [facility] Differential cell count method Nom (Bld) Auto [facility] Eosinophils (Bld) [#/Vol] 0.12 10*3/uL [facility] Eosinophils/100 WBC (Bld) 1.9 % [facility] Erythrocyte distribution width (RBC) [Ratio] 13.1 % 11.5 - 15.0 % [facility] Hematocrit (Bld) [Volume fraction] 50.4 % 39.0 - 51.0 % [facility] Hemoglobin (Bld) [Mass/Vol] 17.0 g/dL 13.0 - 17.0 g/dL [facility] Immature granulocytes (Bld) [#/Vol] NINF [facility] Immature granulocytes/100 WBC (Bld) 0.3 % [facility] Interpretation and review of laboratory results Abnormal [facility] Lymphocytes (Bld) [#/Vol] 2.15 10*3/uL [facility] Lymphocytes/100 WBC (Bld) 34.3 % [facility] MCH (RBC) [Entitic mass] 31.7 pg 26.0 - 34.0 pg [facility] MCHC (RBC) [Mass/Vol] 33.7 g/dL 30.5 - 36.0 g/dL [facility] MCV (RBC) [Entitic vol] 93.9 fL 80.0 - 100.0 fL [facility] Monocytes (Bld) [#/Vol] 0.52 10*3/uL [facility] Monocytes/100 WBC (Bld) 8.3 % [facility] Neutrophils (Bld) [#/Vol] 3.41 10*3/uL [facility] Neutrophils/100 WBC (Bld) 54.4 % [facility] Nucleated RBC (Bld) [#/Vol] NINF [facility] Nucleated RBC/100 WBC (Bld) [Ratio] 0.0 % /100 WBC [facility] Platelet mean volume (Bld) [Entitic vol] 12.4 fL 9.0 - 12.7 fL [facility] Platelets (Bld) [#/Vol] 142 10*3/uL Low [facility] RBC (Bld) [#/Vol] 5.37 10*6/uL 4.20 - 6.0 0 m/uL [facility] WBC (Bld) [#/Vol] 6.27 10*3/uL [facility] Surgery Specimen Level Yordy 11-19-2023 Surgery Specimen Level IV Patient Age/Sex Location Account Attending Physician NELSON MASSEY 63/M LABSPEC [id number] Dr. Johann Franco MD Specimen: [id number] Received: 11/19/23 [facility] Num: [id number] Spec Type: Lesion Subm Dr: Dr. Johann Franco MD HEADER OPERATION: Shave biopsy left thigh and excision right neck skin lesion PRE-OP DIAGNOSIS: Left thigh skin lesion/ left neck skin lesion TISSUE SUBMITTED: A- Left neck, B- left thigh MICROSCOPIC DIAGNOSIS A. Skin lesion of left neck, excision biopsy; Seborrheic keratosis mildly inflamed. Solar elastosis. No evidence of malignancy. B. Skin lesion of left thigh, shave biopsy; Superficial fragments of verrucoid keratosis. [facility] 11/21/2023 MICROSCOPIC DESCRIPTION Slides are reviewed. GROSS DESCRIPTION A. Received in fixative is one container labeled with the patient's name and designated Left neck skin lesion. The specimen consists of magallanes-white skin ellipse measuring 1.0 x 0.4cm and up to 0.3cm in thickness. There is a brown lesion on the surface measuring 0.5 x 0.3cm. The specimen is inked, serially sectioned and submitted entirely in one cassette. B. Received in fixative is one container labeled with the patient's name and designated Left thigh lesion. The specimen consists of three pieces of magallanes-brown skin measuring 0.8 x0.5 x0.1cm. 0.5 x 0.3 x 0.1cm and 0.5 x 0.2 x 0.1cm. Largest piece is serially sectioned. The specimen is inked, serially sectioned and submitted entirely in one cassette. The entire specimen is submitted in one cassette. [facility] 11/20/23 TC:5 CPT: 85598y0 Patient Age/Sex Location Account Attending Physician NELSON MASSEY 63/M LABSPEC [id number] Dr. Johann Franco MD Signed (signature on file) Dr. Lauri Lorenz DO 11/21/23 1342 Normal [facility] Comment on above: Performed By: #### P ABBY #### [facility] [address] [place] [address] [place], [address] Surgery Visit Reporton 11-18 Surgery Visit Report [facility] [address] [place] [address] OFFICE VISIT Date of Service: 11/19/23 MR#: [id number] Acct: [id number] Name: NELSON MASSEY Rep #: [id number] : 1960 Provider: Dr. Johann thomas MD Age/Sex: 63/M Location: [facility] Status: Signed Intake Vital Signs 11/28/22 08:31 10/01/23 07:08 Height 6 ft 4 in 6 ft 4 in Intake Visit Reasons: Excision of left anterior thigh mole Chief Complaint: excision of anterior thigh mole [employer] Required: No Is patient in pain?: No Allergies No Known Allergies Allergy (Unverified 11/19/23 13:44) Medications tcwkrop-iqeazxzosmdxs-zkqfq ine 250 mg-250 mg-65 mg tablet (Excedrin Extra Strength) 1 tab PO Q6H PRN Migraine Headache 10/24/22 [History Confirmed 11/19/23] ibuprofen 800 mg tablet 800 mg PO Q8H PRN Pain 11/27/22 [History Confirmed 11/19/23] PFSH Medical History Alcohol use Arthritis Back problem Constipation History of edema History of pain when walking Psoriasis Skin lesions Smoker Wears contact lenses Surgical History H/O colonoscopy Hx of total hip arthroplasty Family History Father Diabetes Colon polyps Social History Smoking Status: Current every day smoker tobacco type: cigars alcohol intake: current alcohol intake frequency: a few times a month HPI HPI HPI: 63-year-old gentleman presents for planned excision of a skin lesion left thigh. Office Procedures Excision of skin Provider Documentation Provider Documentation: Excision left mid neck pigmented nevus 4 mm in diameter Timeout informed consent was obtained. Patient was taken the procedure room placed upon the table left neck was prepped draped with Betadine 1% lidocaine mixed 50-50 with 0.5% Marcaine was used as local anesthetic a small elliptical excision measuring approximately 7 x 5 mm used to excise the lesion. Subdermal tissues approximated with interrupted 3-0 chromic. Skin edges approximated simple sutures of 4-0 nylon. Telfa OpSite dressing applied. The specimen submitted in formalin for analysis. Shave biopsy left anterior thigh multicolored irregular keratotic nevus measuring 1.2 cm in maximal length This area was also prepped with Betadine. 1% lidocaine mixed 50-50 0.5% Marcaine was used as local anesthetic. Using a 15 blade scalpel I shave the surface submitted this fragment as a specimen. The base was treated with Accu-Temp cautery. Topical antibiotic ointment and Band-Aid applied. He was given activity wound care instructions. The specimen was submitted in formalin. Johann Franco M.D., F.A.C.S. H/F/N/S/G 07396 <0.6cm Procedure Time Out Time Out Informed consent given: Yes Consent signed: Yes Time out checklist: patient, procedure, site marked/identified, positioning of patient, supplies available, allergies confirmed and team agrees on procedure Time out staff in room: Yes Time out verified: Yes Time out date: 11/19/23 Time out time: 14:10 Assessment and Plan Assessment and Plan (1) Skin lesions: Status: Acute Plan: Successful treatment of left neck pigmented nevus with complete elliptical excision and treatment of multicolored keratosis left anterior thigh with shave biopsy and ablation. Pathology pending. Copy: Dr. Lavelle Franco M.D., F.A.C.S. Coding Level of Care Code [facility] Diagnoses Skin lesions L98.9 CPT Codes H/F/N/S/G - Benign H/F/N/S/ <0.6cm ([id number]) Comment [id number] 11/19/23 1532 Date Johann Franco MD [facility] Signature: Date (if applicable) CC: Dr. Lavelle Daly, DO Chin [facility] Office Visit: PAUL: Sydnee Gabriel OM 02-21-2017 Documentation of current medications (procedure) Done Invalid Interpretation Code [facility] Work Phone: Fall risk assessment No Invalid Interpretation Code [facility] Work Phone: Protein mass conc Done [facility] Work Phone: Tobacco smoking status NHIS Never smoker [facility] Work Phone: Tobacco use [facility] Never smoker Invalid Interpretation Code [facility] Work Phone: Vital Signs Date Time Vital Sign Value Performing Clinician Facility 03-11-2024 12:06-0400 Body height 190 cm Lavelle Daly DO Work Phone: [facility] 03-11-2024 12:06-0400 Body mass index (BMI) [Ratio] 29.53 kg/m2 Lavelle Daly DO Work Phone: [facility] 03-11-2024 12:06-0400 Body temperature 97 [degF] Lavelle Daly DO Work Phone: [facility] 03-11-2024 12:06-0400 Body weight 106.59 kg Lavelle Daly DO Work Phone: [facility] 03-11-2024 12:06-0400 Diastolic blood pressure 80 mm[Hg] Lavelle Daly DO Work Phone: [facility] 03-11-2024 12:06-0400 Heart rate 64 /min Lavelle Daly DO Work Phone: [facility] 03-11-2024 12:06-0400 Systolic blood pressure 120 mm[Hg] Lavelle Daly DO Work Phone: [facility] 10-01-2023 07:08-0500 Body height 193.[address] Lavelle Daly Work Phone: [facility] 02-12-2023 07:55-0400 Body temperature 97.81 [degF] Marie Haro PA-C Work Phone: [facility] 02-12-2023 07:55-0400 Body weight 123.38 kg Marie Haro PA-C Work Phone: [facility] 02-12-2023 07:55-0400 Diastolic blood pressure 82 mm[Hg] Marie Haro PA-C Work Phone: [facility] 06-19-2023 07:55-0400 Heart rate 64 /min Marie Haro PA-C Work Phone: [facility] 02-12-2023 07:55-0400 Respiratory rate 18 /min Marie Haro PA-C Work Phone: [facility] 02-12-2023 07:55-0400 Systolic blood pressure 128 mm[Hg] Marie Haro PA-C Work Phone: [facility] 11-28-2022 10:15-0400 Body temperature 98.3 [degF] Dr. Lavelle Daly Work Phone: 3(249)[phone] [place] [address] 11-28-2022 10:15-0400 Diastolic blood pressure 82 mm[Hg] Dr. Lavelle Daly Work Phone: 9(383)935-590913 [place] [address] 11-28-2022 10:15-0400 Heart rate 62 /min Dr. Lavelle Daly Work Phone: 0(891)[phone] [place] [address] 11-28-2022 10:15-0400 Respiratory rate 16 /min Dr. Lavelle Daly Work Phone: 3(475)[phone] [place] [address] 11-28-2022 10:15-0400 SaO2% (BldA) [Mass fraction] 100 % Dr. Lavelle Daly Work Phone: 0(906)[phone] [place] [address] 11-28-2022 10:15-0400 Systolic blood pressure 135 mm[Hg] Dr. Lavelle Daly Work Phone: 4(560)[phone] [place] [address] 11-28-2022 08:31-0400 Body height 193.[address] Lavelle Daly Work Phone: 0(270)[phone] [place] [address] 11-28-2022 08:31-0400 Body mass index (BMI) [Ratio] 35.6 kg/m2 Dr. Lavelle Daly Work Phone: 2(334)[phone] [place] [address] 11-28-2022 08:31-0400 Body weight [address] Lavelle Daly Work Phone: 7(551)[phone] [place] [address] 10-24-2022 09:32-0500 Body mass index (BMI) [Ratio] 33.1 kg/m2 Dr. Lavelle Daly Work Phone: [facility] 10-24-2022 09:32-0500 Body weight 120.[address] Lavelle Daly Work Phone: [facility] 02-21-2017 06:24-0400 BMI (Body Mass Index) 32.47 kg/m2 Aleksandra Minconstance DE GUZ[facility] Work Phone: 02-21-2017 06:24-0400 Body Temperature 97.2 [degF] Aleksandra Wilson [facility] Work Phone: 02-21-2017 06:24-0400 BP Diastolic 88 mm[Hg] Aleksandra Wilson LPN [facility] Work Phone: 02-21-2017 06:24-0400 BP Systolic 128 mm[Hg] Aleksandra Wilson [facility] Work Phone: 02-21-2017 06:24-0400 Height 190.5 cm Aleksandra Wilson LPN [facility] Work Phone: 02-21-2017 06:24-0400 Pulse (Heart Rate) 76 /min Aleksandra Wilson LPN [facility] Work Phone: 02-21-2017 06:24-0400 Pulse Oximetry 98 % Aleksandra Wilson [facility] Work Phone: 02-21-2017 06:24-0400 Respiratory Rate 14 /min Aleksandra Wilson LPN [facility] Work Phone: 02-21-2017 06:24-0400 Weight 117.85 kg Aleksandra Wilson LPN [facility] Work Phone: Encounters Encounter Date Encounter Type Care Provider Facility Start: 07-02-2025 End: 07-02-2025 ambulatory LAVELLE DALY Facility:[facility] Start: 01-28-2025 End: 03-20-2025 ambulatory [facility] Facility:[facility] Start: 01-28-2025 End: 03-20-[address] ARUN BUTLER MD [facility] Start: 01-23-[address] ARUN WHITTAKER MD Facility:[facility] Start: 09-25-2024 End: 09-25-2024 ambulatory Lavelle Pierrerison Facility:[facility] Start: 08-25-2024 End: 08-25-2024 ambulatory Lavelle Pierrerison Facility:[facility] Start: 08-04-2024 End: 08-04-2024 ambulatory LAVELLE L DALY Facility:[facility] Start: 08-04-2024 End: 08-04-2024 Patient encounter procedure Sondra Barnett MD Work Phone: Otolaryngology Comment on above: Sensorineural hearin g loss (SNHL) of both ears (Primary Dx) Tinnitus of both ear s (Primary Dx); Bilateral hearing loss, unspecified hearing loss type Start: 06-18-2024 End: 08-07-2024 Telephone encounter Lavelle Daly DO Work Phone: [facility] Comment on above: Results Start: 05-02-2024 End: 05-02-2024 ambulatory Noe Encinas Facility:[facility] Start: 03-12-2024 Telephone encounter Lavelle rhodes DO Work Phone: [facility] Start: 03-11-2024 Encounter for genera l adult medical examination without abnormal findings LAVELLE DALY [facility] Start: 03-11-2024 Telephone encounter Lavelle rhodes DO Work Phone: [facility] Start: 03-11-2024 End: 03-11-2024 Patient encounter procedure Lavelle Daly DO Work Phone: [facility] Comment on above: Well adult exam (Lucy desmond Dx); PSORIASIS; Chronic ITP (idiopathic thrombocytopenia) (HCC); Screening for prostate cancer; Bilateral hearing loss, unspecified hearing loss type; Skin lesion of back; Onychomycosis Start: 03-11-2024 End: 03-11-2024 Patient encounter status Lavelle Daly DO Work Phone: [facility] Start: 11-19-2023 End: 11-19-[address] Lavelle Daly Work Phone: [facility] Work Phone: Start: 11-19-2023 End: 11-19-[address] Lavelle Daly Work Phone: [facility] Specimen Work Phone: Start: 11-19-2023 End: 11-19-2023 ambulatory Lavelle Daly Facility:[facility] Start: 11-19-2023 End: 11-19-[address] Lavelle Daly Work Phone: [facility] Work Phone: Start: 11-19-2023 End: 11-19-2023 ambulatory Johann Franco Facility:[facility] Start: 02-12-2023 End: 02-12-2023 Patient encounter procedure Marie Haro PA-C Work Phone: [facility] Comment on above: Pre-op exam (Primary Dx); Primary osteoarthritis of left hip Start: 02-12-2023 End: 02-12-2023 Preprocedural examination done Marie Haro PA-C Work Phone: [facility] Start: 11-28-2022 Non-patient / Non-visit Dr. Zee Daly Work Phone: [facility] Start: 11-28-2022 End: 11-28-2022 Admission to same day surgery center Dr. Lavelle Daly Work Phone: [facility] [facility] Start: 11-28-2022 End: 11-28-[address] Lavelle Daly Work Phone: [facility] Work Phone: Start: 10-24-2022 Non-patient / Non-visit Dr. Zee Daly Work Phone: [facility] Procedures Date Procedure Procedure Detail Performing Clinician Start: 08-04-2024 HEARING TEST/AUDIOGRAM Martell Larsen WALLACE Work Phone: Start: 03-11-2024 Adult depression scr eening assessment Sondra Barnett MD Work Phone: Start: 03-11-2024 Lipid 1996 panel - S nury or Plasma Lavelle Daly DO Work Phone: Start: 11-28-2022 End: 11-28-[address] Lavelle Daly Work Phone: Start: 04-08-2018 Lipid 1996 panel - S nury or Plasma Lavelle Daly DO Work Phone: Plan of Treatment Date Care Activity Detail Author Start: 01-30-2036 RSV Vaccine (1 - 1-dose 75+ series) RSV Vaccine (1 - 1-dose 75+ series) [facility] Start: 03-12-2029 Prostate specific antigen measurement Prostate Cancer Screening Discussion [facility] Start: 03-11-2029 Lipid panel Lipid Screening [facility] Start: 03-11-2027 Diabetes Screening Diabetes Screenin g [facility] Start: 11-28-2025 Colonoscopy COLONOSCOPY [facility] Start: 11-28-2025 COLORECTAL CANCER SCREENING COLORECTAL CANCER SCREENING [facility] Start: 11-28-2025 Screening for malignant neoplasm of colon [facility] Start: 03-11-2025 Anxiety Screening Anxiety Screening [facility] Start: 03-11-2025 Depression Screening Depression Scre ening [facility] Start: 05-01-2024 End: 05-01-2024 Patient encounter procedure 05/01/2024 9:00 AM EDT Office Visit Otolaryngology [address] [place] [address] Veronica Vicente MD [address] [place] [address] Bilateral hearing loss, unspecified hearing loss type [H91.93] Otolaryngology Comment on above: Bilateral hearing lo ss, unspecified hearing loss type [H91.93] Start: 04-27-2024 Covid-19 Vaccine ( season) Covid-19 Vaccine () [facility] Start: 04-27-2024 Influenza vaccination Influenza Vacc ine (#1) [facility] Start: 03-12-2024 End: 03-12-2024 ambulatory 03/12/2024 7:45 AM EDT Results Only Janet [facility] Draw Station [address] [place] [address] Janet [facility] Start: 03-11-2024 End: 06-10-2024 25-hydroxyvitamin D3 [Mass/volume] in Serum or Plasma [facility] Comment on above: Expected: 03/11/2024 , Expires: 06/10/2024 Start: 03-11-2024 End: 06-10-2024 Cobalamin (Vitamin B12) [Mass/volume] in Serum or Plasma [facility] Comment on above: Expected: 03/11/2024 , Expires: 06/10/2024 Start: 03-11-2024 End: 06-10-2024 Comprehensive metabolic 2000 panel - Serum or Plasma [facility] Work Phone: Comment on above: Expected: 03/11/2024 , Expires: 06/10/2024 Start: 03-11-2024 End: 06-10-2024 Hemoglobin A1c in Blood [facility] Comment on above: Expected: 03/11/2024 , Expires: 06/10/2024 Start: 03-11-2024 End: 06-10-2024 Lipid 1996 panel - Serum or Plasma [facility] Comment on above: Expected: 03/11/2024 , Expires: 06/10/2024 Start: 03-11-2024 End: 06-10-2024 PSA/PROSTATE SPECIFIC ANTIGEN SCREENING PSA/PROSTATE SPECIFIC ANTIGEN SCREENING Lab Routine Well adult exam Screening for prostate cancer Expected: 03/11/2024, Expires: 06/10/2024 [facility] Comment on above: Expected: 03/11/2024 , Expires: 06/10/2024 Start: 03-11-2024 End: 06-10-2024 Thyrotropin [Units/volume] in Serum or Plasma [facility] Comment on above: Expected: 03/11/2024 , Expires: 06/10/2024 Start: 03-11-2024 End: 06-10-2024 Thyroxine (T4) free [Mass/volume] in Serum or Plasma [facility] Comment on above: Expected: 03/11/2024 , Expires: 06/10/2024 Start: 04-27-2023 Covid-19 Vaccine () Covid-19 Vaccine () [facility] Start: 04-27-2023 Influenza vaccination INFLUENZ A (Season Ended) [facility] Start: 04-08-2023 Lipid panel Lipid Screening [facility] Start: 04-08-2023 LIPID SCREEN LIPID SCREEN [facility] Start: 11-28-2022 Patient discharge [facility] Start: 08-27-2022 [facility] Start: 04-08-2021 DIABETES SCREEN DIABETES SCREEN [facility] Start: 04-08-2021 Diabetes Screening Diabetes Screenin g [facility] Start: 03-15-2021 PROSTATE CANCER SCREENING DISCUSSION PROSTATE CANCER SCREENING DISCUSSION [facility] Start: 03-15-2021 Prostate specific antigen measurement Prostate Cancer Screening Discussion [facility] Start: 2021 RSV Vaccine (1 - 1-dose 60+ series) RSV Vaccine (1 - 1-dose 60+ series) [facility] Start: 02-21-2017 End: 02-21-2017 Appointment Appointment [facility] Work Phone: Start: 2011 SHINGRIX VACCINE (1 of 2) SHINGRIX VACCINE (1 of 2) [facility] Start: 2006 COLOGUARD (FIT-DNA) COLOGUARD (FIT-D NA) [facility] Start: [address] COLONOGRAPHY [facility] Start: 2006 FECAL OCCULT BLOOD FECAL OCCULT BLOO D [facility] Start: 2006 Screening for malignant neoplasm of colon [facility] Start: 2006 SIGMOIDOSCOPY SIGMOIDOSCOPY [facility] Start: 01-30-1980 Pneumococcal Vaccine : 50+ (1 of 2 - PCV) Pneumococcal Vaccine: 50+ (1 of 2 - PCV) [facility] Start: 01-30-1980 Urine microalbumin profile [facility] Start: 1979 HIV SCREENING HIV SCREENING [facility] Start: 1979 HIV screening HIV Screening [facility] Start: 1967 PNEUMOCOCCAL (1 - PCV) PNEUMOCOCCAL (1 - PCV) [facility] Start: 1967 Pneumococcal vaccination Pneumococcal Vaccine (1 of 2 - PCV) [facility] Start: 1960 COVID-19 VACCINE (#1) COVID-19 VACCI NE (#1) [facility] Colonoscopy [facility] Patient Education PHARYNGITIS [facility] Work Phone: Patient referral [facility] Work Phone: Payers Date Payer Category Payer Private Health Insurance [id number] 2023 Self-pay [id number] 2023 Unknown [id number] 2023 Unknown [id number] 2019 Unknown [id number] 1960 Unknown [id number] 1960 Unknown [id number] [id number] Unknown [id number] 2.16.8 [id number] Unknown [id number] 2.16.8 [id number] Unknown [id number] [id number] Unknown [id number] [id number] Unknown [id number] [id number] Social History Date Type Detail Facility Start: 11-27-2022 End: 11-19-2023 Tobacco smoking status NCIS Unknown if ever smoked [facility] Start: 1960 Sex Assigned At Male [facility] Start: 06-13-1996 End: 08-04-2024 Tobacco smoking status NHIS Occasional tobacco smoker [facility] Start: 06-13-1996 End: 06-13-2016 History of tobacco use Cigarette Smoker [facility] History of tobacco use Cigar Smoker [facility] Start: 08-01-2020 End: 02-12-2023 Cigarettes smoked current (pack per day) - Reported 0.3 [facility] Start: 02-12-2023 End: 08-04-2024 Tobacco use and exposure Smokeless tobacco non-user [facility] Start: 02-12-2023 End: 08-04-2024 Alcohol intake Current drinker of alcohol (finding) [facility] Start: 01-26-2020 History SDOH Alcohol Frequency 2 [facility] Start: 01-26-2020 History SDOH Alcohol Std Drinks 1 [facility] Start: 01-26-2020 History SDOH Social Connections Phone 4 [facility] Start: 01-26-2020 History SDOH Social Connections Spiritism 3 [facility] Start: 01-26-2020 Education 18 [facility] Start: 02-12-2023 Tobacco Comment 1996 Smokes 4 cigars per week [facility] Start: 06-20-2016 Alcohol Comment occassional beer [facility] Start: 1960 Sex Assigned At Not on file [facility] Start: 08-01-2020 End: 03-04-2024 [facility] [employer]zz[employer] Has the [employer], or [employer] threatened to shut off services in your home in past 12Mo No [facility] Do you belong to any clubs or organizations such as mandaen groups, unions, fraternal or athletic groups, or school groups? Yes [facility] Are you now , , , , never or living with a partner? [facility] How often to you hav e a drink containing alcohol? 2-4 times a month [facility] How many standard dr inks containing alcohol do you have on a typical day? 1 or 2 [facility] How often do you hav e 6 or more drinks on 1 occasion? Never [facility] How hard is it for y ou to pay for the very basics like food, housing, medical care, and heating Not very hard [facility] Adult Depression Screening Assessment 0 [facility] Do you feel stress - tense, restless, nervous, or anxious, or unable to sleep at night because your mind is troubled all the time - these days [OSQ] Only a little [facility] (I/We) worried wheth er (my/our) food would run out before (I/we) got money to buy more. Never true [facility] Medical Equipment Procedure Code Equipment Code Equipment Origin al Text Equipment Identifier Dates Minimally invasive total replacement of hip joint by anterior approach 127 NECK ANGLE HIP STEM FDA Start: 02-04-2020 Minimally invasive total replacement of hip joint by anterior approach CERAMIC V40 FEMORAL HEAD FDA Start: 02-04-2020 Minimally invasive total replacement of hip joint by anterior approach POLYETHYLENE INSERT FDA Start: 02-04-2020 Minimally invasive total replacement of hip joint by anterior approach clusterhole acetabular shell FDA Start: 02-04-2020 Minimally invasive total replacement of hip joint by anterior approach 127 NECK ANGLE HIP STEM FDA Start: 02-04-2020 Minimally invasive total replacement of hip joint by anterior approach CERAMIC V40 FEMORAL HEAD FDA Start: 02-04-2020 Minimally invasive total replacement of hip joint by anterior approach POLYETHYLENE INSERT FDA Start: 02-04-2020 Minimally invasive total replacement of hip joint by anterior approach clusterhole acetabular shell FDA Start: 02-04-2020 Colonoscopy RESOLUTION 360 C LIP 235 CM FDA Start: 11-28-2022 Goals Date Patient Goal Desired Activity /State Mental Status Date Assessment Result Facility 11-28-2022 Cognitive function Voice/Name [facility] Work Phone: Clinical Notes 11-28-2022 to 02-04-2025 RadiologySondra Barnett MD - 08/04/2024 3:32 PM Martell García AUD - 08/04/2024 2:16 PM ESTTelephone Encounter - Tracey Marshall APRN.CNP - 03/12/2024 6:21 PM EDT Note Date & Type Note Facility 02-04-2025 Evaluation + Plan note Future Scheduled TestsMRI Spine Lumbar w/o Contrast 02/04/25 [facility] 08-04-2024 Note HNO ID: [id number] Author: SONDRA BARNETT MD Service: ? Author Type: Physician Type: Progress Notes Filed: 08/04/2024 15:33 Note Text: HPI Nelson Massey is a 64 year old male who presents with hearing loss. 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 ROS General Weight loss: No Fatigue: No Night sweats:No Cardiac Chest pain:No Fast heart rate:No Swelling in the feet:No Respiratory Short of breath:No Cough:No Wheezing:No Gastrointestinal Nausea:No Vomiting:No Indigestion:No Past medical history, family history, and social history reviewed. PE There were no vitals taken for this visit. General: Patient is awake, alert, NAD. Voice is normal. Skin: normal Eyes: Extraocular motion and Gaze is normal. Ears: Right external auditory canal is normal. TMJ: normal. Right tympanic membranes normal. Left external auditory canal is normal. Left tympanic membrane normal. Nose: Septum is normal. Turbinates are normal. Nasopharynx:normal Oral Cavity/Oropharynx: Lips normal Dentition normal Tongue normal. Tonsils normal. Palate and uvula normal. Pharynx posterior normal Hypopharynx: Base of tongue normal Pyriform sinus normal. Larynx: Vocal cords normal. Epiglottis normal. Post cricoid normal. Salivary glands: Parotid normal. Submandibular and sublingual normal. Thyroid: normal. Lymphatic/Neck: Lymph nodes normal. Neurologic: Facial nerve normal. Audiogram reviewed ASSESSMENT/PLAN: 1. Sensorineural hearing loss (SNHL) of both ears - ICD9: 389.18, ICD10: H90.3 Consider hearing aid evaluation if communication becomes more difficult Sondra Barnett MD Findings will be communicated to the referring physician via mail or electronic medical record. [facility] 08-04-2024 History of Presen t illness Narrative HPI Nelson Massey is a 64 year old male who presents with hearing loss. 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 ROS General Weight loss: No Fatigue: No Night sweats:No Cardiac Chest pain:No Fast heart rate:No Swelling in the feet:No Respiratory Short of breath:No Cough:No Wheezing:No Gastrointestinal Nausea:No Vomiting:No Indigestion:No Past medical history, family history, and social history reviewed. PE There were no vitals taken for this visit. General: Patient is awake, alert, NAD. Voice is normal. Skin: normal Eyes: Extraocular motion and Gaze is normal. Ears: Right external auditory canal is normal. TMJ: normal. Right tympanic membranes normal. Left external auditory canal is normal. Left tympanic membrane normal. Nose: Septum is normal. Turbinates are normal. Nasopharynx:normal Oral Cavity/Oropharynx: Lips normal Dentition normal Tongue normal. Tonsils normal. Palate and uvula normal. Pharynx posterior normal Hypopharynx: Base of tongue normal Pyriform sinus normal. Larynx: Vocal cords normal. Epiglottis normal. Post cricoid normal. Salivary glands: Parotid normal. Submandibular and sublingual normal. Thyroid: normal. Lymphatic/Neck: Lymph nodes normal. Neurologic: Facial nerve normal. Audiogram reviewed ASSESSMENT/PLAN: 1. Sensorineural hearing loss (SNHL) of both ears - ICD9: 389.18, ICD10: H90.3 Consider hearing aid evaluation if communication becomes more difficult Sondra Barnett MD Findings will be communicated to the referring physician via mail or electronic medical record. documented in this encounter [facility] 08-04-2024 Note HNO ID: [id number] Author: MARTELL LARSEN AUD Service: ? Author Type: Analysis Tester Type: Progress Notes Filed: 08/19/2024 08:49 Note Text: [facility] [place] AUDIOLOGIC EVALUATION REPORT Name: Nelson Massey [facility]#: [id number] Date of Service: 08/04/2024 Date of : 1960 Age: [age] year old Referred by: Self Referred for: Evaluation of suspected change in hearing, tinnitus, or balance. Referral documented: No referral on file Patient's major complaints: Hearing loss: general decline in each ear Tinnitus: bilateral Ear pain: denied Aural fullness: denied Otorrhea: denied History of ear infections: denied History of otologic surgeries: denied Dizziness: denied Noise exposure: years ago- no hearing protection History of chemotherapy or radiation: denied History of head trauma: concussion high school sports Nelson Massey was seen for an initial audiologic evaluation. See SmartForm Audiogram for additional reported history and symptoms. Risk of Falls Documentation for over 65 years old: Does not apply IMPRESSIONS RIGHT EAR: Sensorineural hearing loss LEFT EAR: Sensorineural hearing loss AUDIOLOGIC EVALUATION Following is a brief interpretation of the obtained findings from the audiologic evaluation. Refer to the Auditory Test Record for complete audiometric results. The patient was counseled about the test findings and appropriate audiologic recommendations were made. SUMMARY: Audiogram can be viewed under Forms/Audiology/SmartForm. OTOSCOPY RIGHT EAR: Otoscopic inspection revealed ear canal was clear with an identifiable cone of light. LEFT EAR: Otoscopic inspection revealed ear canal was clear with an identifiable cone of light. TYMPANOMETRY Description of procedure: This test is an objective evaluation of middle ear function. CPT code: 88201 RIGHT EAR: Did not test. LEFT EAR: Did not test. ACOUSTIC REFLEXES Description of procedure: This test is an objective measure of auditory and facial nerve pathways. CPT code: 28396, 16789 RIGHT EAR PROBE EAR: (ipsi right stimulus ear; contralateral left stimulus ear): Acoustic Reflex Pattern Did not test Acoustic Reflex Decay (left stimulus ear): Did not test. LEFT EAR PROBE EAR: (ipsi left stimulus ear; contralateral right stimulus ear): Acoustic Reflex Pattern Did not test Acoustic Reflex Decay (right stimulus ear):Did not test. PURE TONE AUDIOMETRY AND SPEECH TESTING Description of procedure: This test is an objective evaluation hearing sensitivity via air and bone conduction and speech recognition testing. CPT code:43942 RIGHT EAR: Hearing Sensitivity: Mild sloping to severe SNHL Word Recognition Score: Excellent (100%). WRS is consistent with hearing sensitivity. Words were presented at 70 dB HL is above (greater than or equal to 60 dB HL) intensity level for average conversational speech. The NU-6 Ordered by Difficulty Word List (10 words) was used for testing. LEFT EAR: Hearing Sensitivity: Mild sloping to severe SNHL Word Recognition Score: Good (88%). WRS is consistent with hearing sensitivity. Words were presented at 70 dB HL which is above (greater than or equal to 60 dB HL) intensity level for average conversational speech. The NU-6 Ordered by Difficulty Word List (25 words) was used for testing. RECOMMENDATIONS * Continue medical follow-up with Sondra Barnett MD. * The patient was counseled regarding the need to continue to monitor hearing and have regular hearing assessments. * Call [phone] to schedule an appointment to assess your need for hearing aids. Request a HAE appointment. * Encouraged patient to reach out to insurance provider to determine if they are eligible for a hearing aid benefit. Patient was advised that if they return to [facility], the cost of hearing aids would likely be [id number]. Wallace Lara, [facility] Clinical and Senior Hearing Implant Analysis Tester copied to: Sondra Barnett MD KHAN Abbrev- iation Definition Degree of hearing sensitivity dB range WNL within normal limits WNL 0 - 20 SNHL sensorineural hearing loss Mild 20-40 CHL conductive hearing loss Moderate 40-55 MHL mixed hearing loss Moderately-Severe 55-70 WRS word recognition score Severe 70-90 ME middle ear Profound 90 + TM tympanic membrane [facility] 08-04-2024 History of Presen t illness Narrative [facility] [place] AUDIOLOGIC EVALUATION REPORT Name: Nelson Massey [facility]#: [id number] Date of Service: 08/04/2024 Date of : 1960 Age: [age] year old Referred by: Self Referred for: Evaluation of suspected change in hearing, tinnitus, or balance. Referral documented: No referral on file Patient's major complaints: Hearing loss: general decline in each ear Tinnitus: bilateral Ear pain: denied Aural fullness: denied Otorrhea: denied History of ear infections: denied History of otologic surgeries: denied Dizziness: denied Noise exposure: years ago- no hearing protection History of chemotherapy or radiation: denied History of head trauma: concussion high school sports Nelson Massey was seen for an initial audiologic evaluation. See SmartForm Audiogram for additional reported history and symptoms. Risk of Falls Documentation for over 65 years old: Does not apply IMPRESSIONS RIGHT EAR: Sensorineural hearing loss LEFT EAR: Sensorineural hearing loss AUDIOLOGIC EVALUATION Following is a brief interpretation of the obtained findings from the audiologic evaluation. Refer to the Auditory Test Record for complete audiometric results. The patient was counseled about the test findings and appropriate audiologic recommendations were made. SUMMARY: Audiogram can be viewed under Forms/Audiology/SmartForm. OTOSCOPY RIGHT EAR: Otoscopic inspection revealed ear canal was clear with an identifiable cone of light. LEFT EAR: Otoscopic inspection revealed ear canal was clear with an identifiable cone of light. TYMPANOMETRY Description of procedure: This test is an objective evaluation of middle ear function. CPT code: 65261 RIGHT EAR: Did not test. LEFT EAR: Did not test. ACOUSTIC REFLEXES Description of procedure: This test is an objective measure of auditory and facial nerve pathways. CPT code: 68169, 80781 RIGHT EAR PROBE EAR: (ipsi right stimulus ear; contralateral left stimulus ear): Acoustic Reflex Pattern Did not test Acoustic Reflex Decay (left stimulus ear): Did not test. LEFT EAR PROBE EAR: (ipsi left stimulus ear; contralateral right stimulus ear): Acoustic Reflex Pattern Did not test Acoustic Reflex Decay (right stimulus ear):Did not test. PURE TONE AUDIOMETRY AND SPEECH TESTING Description of procedure: This test is an objective evaluation hearing sensitivity via air and bone conduction and speech recognition testing. CPT code:27317 RIGHT EAR: Hearing Sensitivity: Mild sloping to severe SNHL Word Recognition Score: Excellent (100%). WRS is consistent with hearing sensitivity. Words were presented at 70 dB HL is above (greater than or equal to 60 dB HL) intensity level for average conversational speech. The NU-6 Ordered by Difficulty Word List (10 words) was used for testing. LEFT EAR: Hearing Sensitivity: Mild sloping to severe SNHL Word Recognition Score: Good (88%). WRS is consistent with hearing sensitivity. Words were presented at 70 dB HL which is above (greater than or equal to 60 dB HL) intensity level for average conversational speech. The NU-6 Ordered by Difficulty Word List (25 words) was used for testing. RECOMMENDATIONS * Continue medical follow-up with Sondra Barnett MD. * The patient was counseled regarding the need to continue to monitor hearing and have regular hearing assessments. * Call [phone] to schedule an appointment to assess your need for hearing aids. Request a HAE appointment. * Encouraged patient to reach out to insurance provider to determine if they are eligible for a hearing aid benefit. Patient was advised that if they return to [facility], the cost of hearing aids would likely be [id number]. Wallace Lara, [facility] Clinical and Senior Hearing Implant Analysis Tester copied to: Sondra Barnett MD KHAN Abbrev- iation Definition Degree of hearing sensitivity dB range WNL within normal limits WNL 0 - 20 SNHL sensorineural hearing loss Mild 20-40 CHL conductive hearing loss Moderate 40-55 MHL mixed hearing loss Moderately-Severe 55-70 WRS word recognition score Severe 70-90 ME middle ear Profound 90 + TM tympanic membrane documented in this encounter [facility] 03-12-2024 Telephone encounter Note Thank you. Will look out for results. Tracey Marshall APRN.HIGH SCHOOL TUTOR [facility] Work Phone: 03-12-2024 Miscellaneous Notes Thank you. Will look out for results. Tracey Marshall APRN.HIGH SCHOOL TUTOR Pt had lab drawn this morning India Piper MA It says in process? Can we verify if this was completed? Thank you, Tracey Marshall APRN.HIGH SCHOOL TUTOR Contacted [facility] this morning. PSA lab unable to be added. Alma Brandon RN Please call lab to have PSA screen added to recent blood draw orders, blood was drawn today Lavelle Daly DO documented in this encounter [facility] 03-12-2024 Telephone encounter Note Patient notified of results, verbalizes understanding of instructions. Rosibel Hampton LPN [facility] 03-12-2024 Miscellaneous Notes Patient notified of results, verbalizes understanding of instructions. Rosibel Hampton LPN Please inform patient that overall his labs look great except for elevated cholesterol levels. They are not severe, continue to limit fried/fast/fatty food and simple sugars and carbohydrates. Eat mostly lean meats and green vegetables Lavelle Daly DO documented in this encounter [facility] 03-12-2024 Telephone encounter Note Please inform patient that overall his labs look great except for elevated cholesterol levels. They are not severe, continue to limit fried/fast/fatty food and simple sugars and carbohydrates. Eat mostly lean meats and green vegetables Lavelle Daly DO [facility] 03-12-2024 Telephone encounter Note Pt had lab drawn this morning India Piper MA [facility] 03-12-2024 Telephone encounter Note It says in process? Can we verify if this was completed? Thank you, Tracey Marshall APRN.HIGH SCHOOL TUTOR [facility] 03-12-2024 Telephone encounter Note Contacted [facility] this morning. PSA lab unable to be added. Alma Brandon RN [facility] 03-11-2024 Telephone encounter Note Please call lab to have PSA screen added to recent blood draw orders, blood was drawn today Lavelle Daly DO [facility] 03-11-2024 History of Presen t illness Narrative CC: Nelson Massey is a 64 year old male who presents to the office for follow up HPI: Overall he is feeling well. In the last 1 year he has intentionally worked on weight loss with dietary changes, cutting down on sugars and starch foods, as well as intermittent fasting. This has improved his fatigue/energy etc. Psoriasis, overall stable, no concerns, use of clobetasol as needed. Hearing concerns. is concerned that he has significant hearing loss and would like him to have an assessment. He states that he does have to read lips to help with the hearing but also doesn't feel severely affected by it but willing to have it checked. Toenail yellowing/thickening, b/l great toenails and 2nd toenails, no injuries. PAST MEDICAL HISTORY Diagnosis Date Chronic ITP (idiopathic thrombocytopenia) ([facility]) 2015 Dr. Taylor Psoriasis PAST SURGICAL HISTORY Procedure Laterality Date COLONOSCOPY 08/11/2016 10 polyps tubular COLONOSCOPY BX SINGLE/MULTI 04/01/2019 Dr. Nery Franco; 6 polyps TOTAL HIP REPLACEMENT Left 2020 Right side 2022 Current Outpatient Medications Medication Sig clobetasol (TEMOVATE) 0.05 % cream Apply 1 application to affected area two times a day as needed (psoriasis plaque). terbinafine HCl (LAMISIL) 250 mg tablet Take 1 tablet by mouth once daily. meloxicam (MOBIC) 7.5 mg tablet Take 7.5 mg by mouth twice daily. No current facility-administered medications for this visit. ALLERGIES No Known Allergies Social History Tobacco Use Smoking status: Some Days Packs/day: 0.25 Years: 20.00 Additional pack years: 0.00 Total pack years: 5.00 Types: Cigarettes, Cigars Last attempt to quit: 06/13/2016 Years since quittin.7 Smokeless tobacco: Never Tobacco comments: 1995 Smokes 4 cigars per week Vaping Use Vaping Use: Never used Substance Use Topics Alcohol use: Yes Comment: occassional beer Drug use: No ROS: See HPI PE: BP 120/80 Pulse 64 Temp (Src) 97 (Left Tympanic) Ht 6' 2.803 (1.90m) Wt 235 lb (106.6kg) BMI 29.53 kg/(m^2). Gen: A&OX3, NAD, non-toxic appearing HEENT: PERRLA, EOMs intact b/l, nares without drainage, pharynx without erythema, exudate, lesions, or drainage. Uvula midline. MMM Neck: No LAD, no thyromegaly, no meningismus. CV: RRR, no murmur, normal s1s2 Lungs: CTA b/l, no wheezing Skin: No rashes, lesions, or wounds on exposed skin. Right mid scapula hypertrophic appearing skin lesion 7-8 mm size and ovoid No edema Normal peripheral pulses Abd: soft, NT, ND, normal BS, no masses Thickening/yellowing of toenails 1-2nd toenails ASSESSMENT/PLAN: 1. Well adult exam - ICD9: V70.0, ICD10: Z00.00 (primary diagnosis) - Counseled on healthy diet and regular exercise - Risks/benefits of prostate cancer screening discussed. screening PSA ordered - BEHAVIORAL HEALTH SCREENING - COMPREHENSIVE METABOLIC PANEL - COMPLETE BLOOD COUNT AND DIFFERENTIAL - THYROID STIMULATING HORMONE - LIPID PANEL BASIC - HEMOGLOBIN A1C - VITAMIN D 25 HYDROXY - VITAMIN B12 - T4 FREE/FREE THYROXINE 2. PSORIASIS - ICD9: 696.1, ICD10: L40.8 rx prn - CLOBETASOL 0.05 % TOPICAL CREAM 3. Chronic ITP (idiopathic thrombocytopenia) (HCC) - ICD9: 287.31, ICD10: D69.3 stable 4. Screening for prostate cancer - ICD9: V76.44, ICD10: Z12.5 - Counseled on healthy diet and regular exercise 5. Bilateral hearing loss, unspecified hearing loss type - ICD9: 389.9, ICD10: H91.93 - CONSULT TO ENT 6. Skin lesion of back - ICD9: 709.9, ICD10: L98.9 F/u with appt for shave biopsy 7. Onychomycosis - ICD9: 110.1, ICD10: B35.1 Start on lamisil F/u in 3-6 months if not improved Lavelle Daly DO Return if no improvement. Follow up with Lavelle Daly DO. To ER if develops chest pain, shortness of breath. Discussed risks, benefits, alternatives, and potential side effects of medications. Patient/Guardian expressed understanding and agreed with the plan. See patient instructions. Lavelle Daly DO [address] [place] [address] documented in this encounter [facility] 02-12-2023 History of Presen t illness Narrative Chief Complaint Patient presents with: Pre-Op Exam HPI Nelson Massey is a 63 year old male who presents here today for pre-op exam. Patient is scheduled for a Direct anterior Left Total hip arthroplasty on 02/22/[address] Butler. Patient reports he had labs and ECG completed already. Patient denies hx of [place], CAD, Stroke or TIA. No chest pain, no shortness of breath. Patient had R hip replacement completed in 2019 without issues. Past medical history, appointments, medications, allergies reviewed. Previous Medical History PAST MEDICAL HISTORY Diagnosis Date Chronic ITP (idiopathic thrombocytopenia) (HCC) 2015 Dr. Taylor Psoriasis Previous Surgical History PAST SURGICAL HISTORY Procedure Laterality Date COLONOSCOPY 08/11/2016 10 polyps tubular COLONOSCOPY BX SINGLE/MULTI 04/01/2019 Dr. Nery Franco; 6 polyps TOTAL HIP REPLACEMENT Right 2019 Family History FAMILY HISTORY Problem Relation Age of Onset Diabetes Father other (Psoriasis) Mother Diabetes Paternal Grandmother Diabetes Paternal Uncle Cancer Brother hodgkins and thyroid ca Cancer Paternal Aunt blood ca of sometype Patient Allergies ALLERGIES No Known Allergies Current Medications Current Outpatient Medications on File Prior to Visit Medication Sig meloxicam (MOBIC) 7.5 mg tablet Take 7.5 mg by mouth twice daily. clobetasol (TEMOVATE) 0.05 % cream Apply 1 application to affected area twice daily as needed (psoriasis plaque). montelukast (SINGULAIR) 10 mg tablet Take 1 tablet by mouth daily at bedtime. For allergies cetirizine (ZYRTEC) 10 mg tablet Take 1 tablet by mouth once daily. (Patient not taking: Reported on 02/12/2023) fluticasone (FLONASE) 50 mcg/actuation nasal spray Use 2 Sprays in each nostril once daily. Rinse mouth after use. (Patient not taking: Reported on 02/12/2023) No current facility-administered medications on file prior to visit. Social History Social History Tobacco Use Smoking status: Some Days Packs/day: 0.25 Years: 20.00 Pack years: 5.00 Types: Cigarettes, Cigars Last attempt to quit: 06/13/2016 Years since quittin.6 Smokeless tobacco: Never Tobacco comments: 1995 Smokes 4 cigars per week Vaping Use Vaping Use: Never used Substance Use Topics Alcohol use: Yes Comment: occassional beer Drug use: No Review of Symptoms REVIEW OF SYSTEMS GENERAL: No weight loss, malaise or fevers HEENT: No changes in hearing or vision, no nose bleeds or other nasal problems NECK: Negative for lumps, goiter, pain and significant neck swelling RESPIRATORY: Negative for cough, hemoptysis, wheezing, COPD, dyspnea or shortness of breath CARDIOVASCULAR: Negative for chest pain, leg swelling, hypertension, CHF or palpitations GI: Negative for abdominal discomfort, blood in stools or black stools, change in bowel habit, heart burn, nausea, vomiting : No history of dysuria, frequency or incontinence HEMATOLOGY/LYMPHOLOGY: Negative for prolonged bleeding, bruising easily or swollen nodes ENDOCRINE: Negative for cold or heat intolerance, polyuria, polydipsia and goiter NEURO: No history of headaches, syncope, paralysis, seizures or tremors EXAM: BP 128/82 (BP Site: Left Arm, BP Position: Sitting, BP Cuff Size: Large Adult) Pulse 64 Temp 36.6 C (97.8 F) Resp 18 Wt 123.4 kg (272 lb) BMI 34.00 kg/m General Appearance: Well appearing, alert, in no acute distress, well-hydrated, well nourished. overweight Head: Normocephalic, no masses, lesions, tenderness or abnormalities. Eyes: Anicteric sclera. Pupils are equally round and reactive to light. Extraocular movements are intact. . Ears: External ears normal, canals clear, TMs pearly madsen. Nose/Sinuses: Nares normal, septum midline, mucosa normal, no drainage or sinus tenderness. Neck: Supple, no adenopathy; thyroid symmetric, normal size, no bruits. Lungs: Lungs clear to auscultation. No wheezing, rhonchi, rales.. Heart: RRR without murmur, gallop, or rubs. No ectopy. Extremities: No deformities, edema, skin discoloration, clubbing or cyanosis. Good capillary refill. . Peripheral Pulses: Normal. Neurologic: Gait normal. Reflexes normal and symmetric. Sensation grossly intact.. Health Maintenance List COVID-19 VACCINE(1) Never done HIV SCREENING Never done DTAP,TDAP,TD(1 - Tdap) Never done SHINGRIX VACCINE(1 of 2) Never done PROSTATE CANCER SCREENING DISCUSSION due on 03/15/2021 DIABETES SCREEN due on 04/08/2021 DEPRESSION ASSESSMENT Never done LIPID SCREEN due on 04/08/2023 INFLUENZA(Season Ended) due on 04/27/2023 COLORECTAL CANCER SCREENING due on 11/28/2025 HEPATITIS C SCREENING Completed Data reviewed Component Latest Ref Rng & Units 02/06/2023 WBC 3.9 - 11 K/uL 5.4 (A) RBC 4 - 6 M/uL 4.94 HGB 14 - 16.5 g/dL 16.7 (A) HCT 39 - 55 % 48.0 MCV 79 - 98 fL 97.2 MCH 25.4 - 34.6 pg 33.9 MCHC 30 - 36 g/dL 34.9 RDW 140 - 440 K/uL 13.1 (A) Platelet 140 - 440 K/uL 126 (A) NEUT % 40 - 74 % 53.8 LYMPH % 20 - 30 % 34.0 (A) MONO % 2 - 8 % 8.4 (A) EOS % 1 - 3 % 2.9 BASO % 0 - 1.5 % 0.9 NEUT ABS 1.9 - 8 K/uL 2.9 LYMPH ABS 1.2 - 4 K/uL 1.8 MONO ABS 0 - 1 K/uL 0.5 EOS ABS 0.1 - 0.3 K/uL 0.2 BASO ABS 0 - 0.2 K/uL 0.1 Glucose 74 - 106 MG/DL 84 Sodium 136 - 145 MEQ/L 143 Potassium 3.5 - 5.1 MEQ/L 5.0 Chloride 98 - 107 MEQ/L 106 Creatinine 0.6 - 1.3 MG/DL 1.04 GFR mL/MIN 72 GFR AFR AMER mL/MIN 88 Calcium 8.8 - 10.5 MG/DL 9.2 CO2 23 - 31 mmol/L 29 ELECTROLYTE BALANCE 4.0 - 15.0 mEq/L 8.0 BUN 7 - 18 MG/DL 8 BUN/CREATININE RATIO 7 - 27 8 ALB 3.2 - 5.2 g/dL 4.0 ASSESSMENT/PLAN: 1. Pre-op exam - ICD9: V72.84, ICD10: Z01.818 (primary diagnosis) Outside labs and ECG reviewed and overall wnl. No evidence of diabetes. Will recheck platelet count in 1-2 month but patient may continue with surgery. Cleared for surgery. 2. Primary osteoarthritis of left hip - ICD9: 715.15, ICD10: M16.12 See above Marie Haro PA-C documented in this encounter [facility] 11-28-2022 History and physical note Note Date/Time November 28, 2022 8:25 am [facility] Medical Records Department [address] [place] [id number] History & Physical Exam 11/28/2223 MR#: [id number] Acct: [id number] Name: NELSON MASSEY Rep #:[id number] : 1960 62 From: Johann Franco MD PCP: Dr. Lavelle Daly, DO Status:[facility] Location: [place] [address] HPI - General General Date of Service: 11/28/22 Chief Complaint: Screening for intestinal cancer HPI Narrative NELSON MASSEY, is a 62 M who presents for surveillance colonoscopy. I assisted him on April 01, 2019 with a colonoscopy and 6 polyps were identified and removed atthat time. Fortunately he denies any abdominal pain. No bright red blood per rectum or melena. 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 [facility] Medical History (Updated 11/27/22 @ 10:27 by Anushka Sinha) Alcohol use Arthritis Back problem Constipation History of edema History of pain when walking Psoriasis Skin lesions Smoker Wears contact lenses Home Medications oflfbwq-mtdndgiwuyrej-sjildyef 250 mg-250 mg-65 mg tablet (Excedrin Extra Strength) 1 tab PO Q6H PRN Migraine Headache 10/24/22 [History Last Taken Unknown] ibuprofen 800 mg tablet 800 mg PO Q8H PRN Pain 11/27/22 [History Last Taken Unknown] Allergy/AdvReac Type Severity Reaction Status Date / Time No Known Allergies Allergy Unverified 11/27/22 10:20 Family History (Updated 10/24/22 @ 09:26 by Serenity Caceres) Father Diabetes Colon polyps Surgical History (Updated 11/27/22 @ 10:27 by Anushka Sinha) H/O colonoscopy Hx of total hip arthroplasty Social History Smoking Status: Current every day smoker tobacco type: cigars alcohol intake: current alcohol intake frequency: a few times a month ROS Constitutional Constitutional: Reports systems reviewed and no addt'l complaints, except as documented Cardiovascular Cardiovascular: Denies chest pain Respiratory/Chest Respiratory/Chest: Denies shortness of breath at rest Gastrointestinal Gastrointestinal: Denies abdominal pain, change in bowel habits, hematochezia ormelena Physical Exam Const alert, oriented x3 and no apparent distress General Appearance: cooperative and comfortable Eyes General Eye: normal appearance of both eyes Neck General: normal visual inspection Chest inspection of chest normal Resp Effort and Inspection: able to speak in complete sentences and symmetric chest movement Auscultation: clear to auscultation bilaterally Cardio regular rate and regular rhythm GI soft to palpation, non-tender and non-distended Extremity no calf tenderness Neuro oriented x3 Psych thought process normal Assessment & Plan Assessment/Plan (1) Personal history of colonic polyps: PLAN: 62-year-old gentleman presents via open access today for surveillance colonoscopy because of a personal history of colon polyps. He is aware of the technique, benefit, risk and alternatives. He has had an opportunity to ask andhave questions answered. We will proceed as noted. Johann Franco M.D., F.A.C.S. 11/28/22 0825 <Electronically signed by Johann Franco MD> Cosigner Signature (if applicable): CC: Dr. Lavelle Daly DO; Dr. Johann Franco MD~ Signed [facility] Work Phone: 1(262) 448-539604-04-2023 Procedure [facility] Diagnosis Onset Date Resolution Status Personal history of colonic polyps acute [facility] Work Phone: Evaluation note* Diagnosis Pre-op exam- Primary Preoperative examination, unspecified Primary osteoarthritis of left hip Primary localized osteoarthrosis, pelvic region and thigh documented in this encounter [facility] note* Diagnosis Onset Date Resolution Status Skin lesions [facility] Work Phone: Evaluation note* Diagnosis Well adult exam- Primary Routine general medical examination at a health care facility PSORIASIS Other psoriasis Chronic ITP (idiopathic thrombocytopenia) (HCC) Immune thrombocytopenic purpura Screening for prostate cancer Special screening for malignant neoplasm of prostate Bilateral hearing loss, unspecified hearing loss type Skin lesion of back Unspecified disorder of skin and subcutaneous tissue Onychomycosis Dermatophytosis of nail [facility] Diagnosis Sensorineural hearing loss (SNHL) of both ears- Primary documented in this encounter [facility] note* Diagnosis Tinnitus of both ears- Primary Unspecified tinnitus Bilateral hearing loss, unspecified hearing loss type documented in this encounter [facility] course Narrative No data available for this section [facility] Hospital Discharge instructions No data available for this section [facility] Progress note No data available for this section [facility] Chief Complaint and Reason for Visit Chief Complaint Amb Documentation Reason for Visit Personal history of colonic polyps Chief Complaint Excision of left ant erior thigh mole SKIN LESION Reason for Visit Skin lesions Advance Directives No Advanced Directives Records Found Advance Directive Response Recorded Date/ Time Name of Medical Power of Video Software Engineer SPOUSE November 27, 2022 10:21am Living Will Yes November 27, 2022 10:21am Power of Video Software Engineer Yes November 27 10:21am Advance Directive Response Recorded Date/ Time Living Will Yes October 01 8:08am Power of Video Software Engineer Yes October 01, 2023 8:08am Reason for Referral Specialty Diagnoses / Procedures Referred By Contac t Referred To Contact Ent - Otolaryngology Diagnoses Bilateral hearing loss, unspecified hearing loss type Procedures CONSULT TO ENT OFFICE/OUTPATIENT NEW HIGH MDM 60 MINUTES Lavelle Daly DO [address] [place] [address] Referral ID Status Reason Start Date Expiration Date Visits Requested Visits Authorized [id number] Authorized PCP Requested Referral 03/11/2024 03/11/2025 1 1 Specialty Diagnoses / Procedures Referred By Contac t Referred To Contact Diagnoses Bilateral hearing loss, unspecified hearing loss type Procedures HEARING TEST/AUDIOGRAM COMPRE AUDIOMETRY THRESHOLD EVAL SP MINORIJ Martell Larsen, AUD [address] [place] [address] [facility] [address] [place] [address] Referral ID Status Reason Start Date Expiration Date Visits Requested Visits Authorized [id number] New Request Auto-Generat ed Referral 08/04/2024 08/05/2025 1 1 Summary Purpose Family History No Family History Records Found Additional Source Comments Care Teams (unrecognized sec tion and content) Team Status: Active Member Role Status Dates Dr. Lavelle Daly DO Family Provider Active Dr. Lavelle Daly DO Primary Care Provider Active Team Status: Active Member Role Status Dates Dr. Lavelle Daly DO Primary Care Provider Active Serenity Caceres Attending Provider Active Team Status: Active Member Role Status Dates Dr. Lavelle Daly DO Primary Care Provider, Referr ing Provider Active Dr. Johann Franco MD Attending Provider, Other Prov ider Active Team Status: Inactive Member Role Status Dates Dr. Lavelle Daly DO Primary Care Provider, Referr ing Provider Active Dr. Johann Franco MD Attending Provider Active Organic Search Lead Relationship Specialty Start Date End Date Lavelle Daly DO [address] [place] [address] PCP - General Family Medicine 03/15/16 Team Status: Inactive Member Role Status Dates Dr. Lavelle Daly DO Primary Care Provider Active Dr. Johann Franco MD Attending Provider, Referring Provider Active Organic Search Lead Relationship Specialty Start Date End Date Lavelle Daly DO [address] [place] [address] PCP - General Family Medicine 03/15/16 Organic Search Lead Relationship Specialty Start Date End Date Lavelle Daly DO [address] [place] [address] PCP - General Family Medicine 03/15/16 Organic Search Lead Relationship Specialty Start Date End Date Lavelle Daly DO [address] [facility] [place] [address] PCP - General Family Medicine 03/15/16 Organic Search Lead Relationship Specialty Start Date End Date Lavelle Daly DO [address] [place] [address] PCP - General Family Medicine 03/15/16 Tracey Marshall, NUCLEAR OPERATOR.HIGH SCHOOL TUTOR [address] [facility] [place] [address] [employer]ished [employer] [facility] 08/03/24 Renae Gonzalez, NUCLEAR OPERATOR.HIGH SCHOOL TUTOR [address] [place] [address] Finished [employer] [facility] 08/03/24 Organic Search Lead Relationship Specialty Start Date End Date Lavelle Daly DO [address] [facility] [place] [address] PCP - General Family Medicine 03/15/16 Tracey Marshall, NUCLEAR OPERATOR.HIGH SCHOOL TUTOR [address] [place], [place] [id number] [facility] 08/03/24 Renae Gonzalez APRN.HIGH SCHOOL TUTOR [address] [place], [place] [address] [facility] 08/03/24 Organic Search Lead Relationship Specialty Start Date End Date Lavelle Daly DO [address] [place], [place] [address] PCP - General Family Medicine 03/15/16 Tracey Marshall, CHUCK.HIGH SCHOOL TUTOR [address] [place], [place] [address] [facility]24 Renae Gonzalez, CHUCK.HIGH SCHOOL TUTOR [address] [place], [place] [id number] [facility] 08/03/24 Source Comments (unrecognize d section and content) In the event this informatio n is protected by the Federal Confidentiality of Alcohol and Drug Abuse Patient Records regulations: The Federal rules restrict any use of the information to criminally investigate or prosecute any alcohol or drug abuse patient.[facility] the event this information is protected by the Federal Confidentiality of Alcohol and Drug Abuse Patient Records regulations: The Federal rules restrict any use of the information to criminally investigate or prosecute any alcohol or drug abuse patient.[facility] the event this information is protected by the Federal Confidentiality of Alcohol and Drug Abuse Patient Records regulations: The Federal rules restrict any use of the information to criminally investigate or prosecute any alcohol or drug abuse patient.[facility] the event this information is protected by the Federal Confidentiality of Alcohol and Drug Abuse Patient Records regulations: The Federal rules restrict any use of the information to criminally investigate or prosecute any alcohol or drug abuse patient.[facility] the event this information is protected by the Federal Confidentiality of Alcohol and Drug Abuse Patient Records regulations: The Federal rules restrict any use of the information to criminally investigate or prosecute any alcohol or drug abuse patient.[facility] the event this information is protected by the Federal Confidentiality of Alcohol and Drug Abuse Patient Records regulations: The Federal rules restrict any use of the information to criminally investigate or prosecute any alcohol or drug abuse patient.[facility] the event this information is protected by the Federal Confidentiality of Alcohol and Drug Abuse Patient Records regulations: The Federal rules restrict any use of the information to criminally investigate or prosecute any alcohol or drug abuse patient.[facility] Reason for Visit (unrecogniz ed section and content) Reason Comments Pre-Op Exam Specialty Diagnoses / Procedures Referred By Contac t Referred To Contact Family Medicine / FAMILY MEDICINE Diagnoses pre op clearence/ nothing in pcp office until late February Procedures OFFICE/OUTPATIENT ESTABLISHED MOD MDM 30-39 MIN 4C EST PREOP Self Marie Haro PA-C [address] [place] [address] Referral ID Status Reason Start Date Expiration Date Visits Re quested Visits Authorized [id number] Closed 02/12/2023 08/26/2023 1 1 Reason Comments Yearly Exam Specialty Diagnoses / Procedures Referred By Contac t Referred To Contact Family Medicine / FAMILY MEDICINE Diagnoses Encounter for physical examination Physical Procedures OFFICE/OUTPATIENT ESTABLISHED MOD MDM 30 MIN 4C EST WELL Self Lavelle Daly DO [address] [place] [address] Referral ID Status Reason Start Date Expiration Date V isits Requested Visits Authorized [id number] Denied Financial Clearance Required - Self Pay Clearance Not Met - Admin/Biomass Technician /Director Advise to Postpone/Jennie edule or Not Proceed 03/11/2024 06/09/2024 1 0 Reason Comments audio today Hearing Loss Specialty Diagnoses / Procedures Referred By Contac t Referred To Contact Ent - Otolaryngology Diagnoses Bilateral hearing loss, unspecified hearing loss type Procedures CONSULT TO ENT OFFICE/OUTPATIENT [facility] 60 MINUTES Lavelle Daly, [address] [place] [address] Referral ID Status Reason Start Date Expiration Date V isits Requested Visits Authorized [id number] Closed PCP Requested Referral 03/11/2024 03/11/2025 1 1 Reason Comments Results Specialty Diagnoses / Procedures Referred By Contac t Referred To Contact Ent - Otolaryngology Diagnoses Bilateral hearing loss, unspecified hearing loss type Procedures CONSULT TO ENT OFFICE/OUTPATIENT [facility] MDM 60 MINUTES Lavelle Daly, [address] [place] [address] Goals (unrecognized section and content) Goals may be documented in a n alternate section No data available for this section (unrecognized sect ion and content) No Status Records FoundNo Status Records FoundNo Status Records Found INFORMATION SOURCE (unrecogn ized section and content) DATE CREATED AUTHOR 09/27/2024 [facility] DATE CREATED AUTHOR AUTHOR'S ORGANIZ ATION 03/21/2025 [facility] DATE CREATED AUTHOR AUTHOR'S ORGANIZ ATION 07/03/2025 [facility] FOR RECORDS PERTAINING TO PATIENTS WHO ARE OR HAVE BEEN ENROLLED IN A CHEMICAL DEPENDENCY/SUBSTANCEABUSE PROGRAM, SOME INFORMATION MAY BE OMITTED. This clinical summary was aggregated from multiple sources. Caution should be exercised in using it in the provision of clinical care. This summary normalizes information from multiple sources, and as a consequence, information in this document may materially change the coding, format and clinical context of patient data. In addition, data may be omitted in some cases. CLINICAL DECISIONS SHOULD BE BASED ON THE PRIMARY CLINICAL RECORDS. [email or web address] provides no warranty or guarantee of the accuracy or completeness of information in this document.
== END | disposition home or self-care (01) ==
LOC: CT 07:33
PROVIDERS: PCP Student in an Organized Health Care Education/Training Program; Referring Provider Student in an Organized Health Care Education/Training Program; Visit Provider Student in an Organized Health Care Education/Training Program
DX: Z13.6 Encounter for screening for cardiovascular disorders (principal)
CPT/HCPCS: 75571; 76380